=== PATIENT | female | born 1950 | race Caucasian/White ===

== ENCOUNTER 2017-11-07 11:02 | Outpatient (CLI) | payer MEDICARE ==
[2017-11-07 13:01] LABS: #Basophils 0.1 thou/uL (0.0-0.2); #Eosinphils 0.3 thou/uL (0.0-0.7); #Lymphocytes 3.6 thou/uL (1.20-3.40); #Monocytes 0.6 thou/uL (0.11-0.59); #Neutrophils 4.8 thou/uL (1.40-6.50); %Basophils 0.6 % (0.0-1.0); %Lymphocytes 38.7 % (21.0-51.0); %Monocytes 6.3 % (0.0-10.0); %Neutrophils 51.5 % (42.0-75.0); Hemoglobin 14.2 g/dL (12.0-16.0); Mean Corpuscular HGB CONC 33.6 g/dL (32.0-36.0); Mean Corpuscular Hemoglobin 30.9 pg (27.0-31.0); Mean Corpuscular Volume 91.8 fL (78.0-98.0); Mean Platelet Volume 7.4 fL (7.4-10.4); Platelet Count 256 thou/uL (130-400); RBC Distribution Width 12.1 % (11.5-14.5); White Blood Cell (WBC) Count 9.4 thou/uL (4.8-10.8)
[2017-11-07 13:22] LABS: Anion Gap 15 mmol/L (10-20); BUN (Urea Nitrogen) 14 mg/dL (9.8-20.1); Calc. Creatinine Clearance 0 mL/min (70-130); Calcium 9.8 mg/dL (7.8-10.44); Carbon Dioxide 27 mmol/L (23-31); Chloride 103 mmol/L (98-107); Estimated GFR-MDRD 79; Glucose 86 mg/dL (80-115); Potassium 4.1 mmol/L (3.5-5.1); Sodium 141 mmol/L (136-145)
--- NOTE | 2018-01-28 17:03 | EKG ---
Test Reason : Blood Pressure : / mmHG Vent. Rate : 072 BPM Atrial Rate : 072 BPM P-R Int : 166 ms QRS Dur : 094 ms QT Int : 418 ms P-R-T Axes : 071 -54 057 degrees QTc Int : 457 ms Normal sinus rhythm Incomplete right bundle branch block Left anterior fascicular block Nonspecific T wave abnormality Abnormal ECG No previous ECGs available Confirmed by STEWART LEONE M.D. ([id number]) on 01/28/2018 5:02:40 PM Referred By: EFRAIN Confirmed By:STEWART LEONE M.D.
== END 2017-11-07 11:03 | disposition home or self-care (01) ==
LOC: LABBT 11:02
PROVIDERS: ATTEND Surgery
DX: Z01.818 Encounter for other preprocedural examination (principal); K38.8 Other specified diseases of appendix
CPT/HCPCS: 80048; 85025; 93005; 93010

== ENCOUNTER 2017-11-16 09:26 | Day surgery (SDC) | payer MEDICARE ==
[2017-11-07 11:31] VITALS: BMI 24.3
[2017-11-16] MEDS ORDERED: cefOXitin 2 GM VIAL ONE (10:19)
[2017-11-16] MEDS ORDERED: Sodium Chloride 0.9% 100 ML ONE (10:20)
[2017-11-16] MEDS ORDERED: Bupivacaine/Epinephrine 0.25% 30 ML VIAL ONE (11:36)
[2017-11-16] MEDS ORDERED: Midazolam HCl 2 mg/2 ml Vial ONE (11:45)
[2017-11-16] MEDS ORDERED: Fentanyl 100 MCG/2 ML VIAL ONE ×4 (11:45→13:09)
--- NOTE | 2017-11-16 12:57 | OP ---
DATE OF PROCEDURE: 11/16/2017 PREOPERATIVE DIAGNOSIS: Appendiceal mass. POSTOPERATIVE DIAGNOSIS: Appendiceal mass. PROCEDURE: Laparoscopic appendectomy. SURGEON: Alex Davila M.D. ANESTHESIA: General. ESTIMATED BLOOD LOSS: Minimal. COMPLICATIONS: None. SPECIMEN: Appendix. TECHNIQUE: The patient was taken to the operating room and placed supine on the table. After genera l anesthetic was obtained, the abdomen was prepped and draped in a sterile fashion. A Thomas catheter had been placed. Incision was made above the umbilicus. Cautery was used to dissect down to and sc ore the fascia. Abdominal cavity was entered bluntly using a 12-mm Ethicon trocar, and high-flow pne umoperitoneum was obtained. Suprapubic 5-mm port and left lower quadrant 5-mm port were placed under direct visualization. The cecum was mobilized. A window was made posterior to the cecum at the lev el of the appendiceal orifice. Two loads of a laparoscopic DIMAS stapler were fired across the cecum t o remove the appendix at its base. The appendix was opened on the back table to reveal small nodules or growth at the base. The appendix was included with the specimen. The staple lines were intact. The mesentery was taken using a reload of the stapler. Appendix placed in an Endo Catch bag and had been brought out through the Man. All port sites infiltrated using local anesthetic. All ports are removed under camera visualization. Pneumoperitoneum was let down. PDS was used to close the f ascial defect below the umbilicus. All incisions were irrigated and closed using 4-0 Monocryl and De rmabond. The patient was taken to recovery in stable condition. All sponge counts, needle counts, l ap counts were correct.
[2017-11-16] MEDS ORDERED: PROPOFOL 200 MG/20 ML VIAL ONE (14:59)
[2017-11-16] MEDS ORDERED: HYDROcodone/Acetaminophen 5/325 mg Tablet ONE (14:59)
[2017-11-16] MEDS ORDERED: Lidocaine 1% PF 5 ML VIAL ONE (14:59)
[2017-11-16] MEDS ORDERED: Ondansetron HCl/PF 4 MG/2 ML Vial ONE (14:59)
[2017-11-16] MEDS ORDERED: Glycopyrrolate 0.2 MG/ML 5 ML SYRINGE ONE (14:59)
[2017-11-16] MEDS ORDERED: Dexamethasone 20 MG/5 ML VIAL ONE (14:59)
[2017-11-16] MEDS ORDERED: Morphine 4 MG/ML VIAL ONE (15:02)
== END 2017-11-16 15:58 | disposition home or self-care (01) ==
LOC: SDC 09:26
PROVIDERS: ATTEND Surgery
PROC: 0DTJ4ZZ Resection of Appendix, Percutaneous Endoscopic Approach (ICD-10-PCS; principal; 2017-11-16)
DX: K38.8 Other specified diseases of appendix (principal); F41.9 Anxiety disorder, unspecified; E78.00 Pure hypercholesterolemia, unspecified; I10 Essential (primary) hypertension; F17.210 Nicotine dependence, cigarettes, uncomplicated; E03.9 Hypothyroidism, unspecified; Z79.899 Other long term (current) drug therapy; Z88.8 Allergy status to other drugs, medicaments and biological substances
CPT/HCPCS: 88304; 96374; J0694; J1100; J2001; J2250; J2270; J2405; J2704; J3010; J7050

== ENCOUNTER 2019-01-18 04:56 | Emergency (ER) | payer MEDICARE | END 2019-01-18 05:33 | disposition home or self-care (01) | LOC: ERS 04:56 | DX: G47.30 Sleep apnea, unspecified (principal); F17.210 Nicotine dependence, cigarettes, uncomplicated | CPT/HCPCS: 36416; 99284 ==

== ENCOUNTER 2019-01-22 15:18 | Inpatient (IN) | payer MEDICARE ==
[2019-01-22] MEDS ORDERED: Ondansetron PF 4 MG/2 ML Vial ONE (15:40)
[2019-01-22] MEDS ORDERED: Metoclopramide HCl 10 MG/2 ML VIAL ONE (15:40)
--- NOTE | 2019-01-22 16:15 | CT ---
Exam: Head CT without contrast HISTORY: Headache COMPARISON: none FINDINGS: Hemorrhage: No intraparenchymal hemorrhage or extra-axial hematoma. Brain parenchyma: Cortical manning-white matter differentiation is preserved. No mass effect or midline shift. Basilar cisterns are patent. Ventricular system: Ventricles and sulci are patent and symmetric. Calvarium: Intact. Sinuses and mastoid air cells: Mucosal thickening of the paranasal sinuses. More discrete opacity wit h mixed attenuation the sphenoid sinus. This opacity is attenuation coefficient of 49 Hounsfield units. IMPRESSION: 1. No acute intracranial process. 2. Complex opacity in the sphenoid sinus measuring 2.1 x 1.5 cm. Complex inspissated mucus/secretions is a consideration. Mass lesion cannot be excluded. Direct visualization is recommended.
[2019-01-22 16:28] LABS: #Basophils 0.1 thou/uL (0.0-0.2); #Eosinphils 0.1 thou/uL (0.0-0.7); #Lymphocytes 3.2 thou/uL (1.20-3.40); #Monocytes 0.9 thou/uL (0.11-0.59); #Neutrophils 8.9 thou/uL (1.40-6.50); %Basophils 0.4 % (0.0-1.0); %Eosinophils 1.1 % (0.0-10.0); %Lymphocytes 24.5 % (21.0-51.0); %Monocytes 6.5 % (0.0-10.0); %Neutrophils 67.4 % (42.0-75.0); Hemoglobin 14.5 g/dL (12.0-16.0); Mean Corpuscular HGB CONC 34.1 g/dL (32.0-36.0); Mean Corpuscular Volume 90.9 fL (78.0-98.0); Mean Platelet Volume 7.3 fL (7.4-10.4); Platelet Count 286 thou/uL (130-400); RBC Distribution Width 12.1 % (11.5-14.5); Red Blood Cell (RBC) Count 4.68 mill/uL (4.20-5.40); White Blood Cell (WBC) Count 13.1 thou/uL (4.8-10.8)
[2019-01-22] MEDS ORDERED: Fentanyl 100 MCG/2 ML VIAL ONE ×2 (16:34→17:31)
[2019-01-22 16:51] LABS: ALT (SGPT) 20 U/L (8-55); AST (SGOT) 16 U/L (5-34); Alkaline Phosphatase 143 U/L (40-110); Anion Gap 18 mmol/L (10-20); BUN (Urea Nitrogen) 12 mg/dL (9.8-20.1); Bilirubin, Total 0.5 mg/dL (0.2-1.2); Calc. Creatinine Clearance 0 mL/min (70-130); Calcium 10.1 mg/dL (7.8-10.44); Carbon Dioxide 23 mmol/L (23-31); Chloride 95 mmol/L (98-107); Estimated GFR-MDRD 80; Globulin 3.3 g/dL (2.4-3.5); Glucose 98 mg/dL (80-115); Lipase 6 U/L (8-78); Potassium 3.1 mmol/L (3.5-5.1); Protein, Total 8.3 g/dL (6.0-8.3); Sodium 133 mmol/L (136-145)
--- NOTE | 2019-01-22 16:52 | RAD ---
Exam: Chest one view HISTORY:Fever. Meningitis. Comparison: None. FINDINGS: Cardiac silhouette: Normal Aorta: Slight elongation aorta. Pulmonary vessels: Normal Costophrenic angles: Clear LUNGS: Patchy interstitial opacities. Pneumothorax: None Osseous abnormalities: None IMPRESSION: Patchy interstitial opacities. Correlate for edema or infiltrate.
[2019-01-22 17:31] LABS: Color Of CSF Supernatant COLORLESS (Colorless); Tube # 2; Unspun CSF Color COLORLESS (Colorless)
[2019-01-22] MEDS ORDERED: Dexamethasone 10 MG/ML VIAL ONE (17:32)
[2019-01-22 17:42] LABS: CSF Source CSF; Clarity Cloudy/Turbid (Clear)
[2019-01-22 17:43] LABS: CSF Source CSF; Clarity Hazy (Clear); Tube # 1; Tube # 4
[2019-01-22 17:50] LABS: CSF, Glucose 58 mg/dl (40-70); CSF, Protein 172 mg/dL (15-40)
[2019-01-22 17:54] LABS: Cell Count Non Hematic 21 %; Eosinophils 1 %; Lymphocytes 61 %; Segmented Neutrophils 14 %
[2019-01-22 17:58] LABS: Cell Count Non Hematic 23 %; Lymphocytes 56 %; Segmented Neutrophils 18 %
--- NOTE | 2019-01-22 18:20 | PDOC.FPRHP ---
- History of Present Illness Chief Complaint: Headache History of Present Illness: 68-year-old female presented to the ED five days ago complaining of a cough congestion chest pain and shortness of breath. Patient was diagnosed with an upper respiratory infection and discharge dhome. Last night patient stated that she developed fevers and chills along with a frontal headache. She treated the fevers with Motrin and Tylenol which improved however her headache remained consistent through the day. She states that the headache is accompanied by neck pain that is exacerbated with movement. The headache has now been difficult to localize and is moving from frontal to temporal to occipital. She has a history of headaches but denies them ever feeling like this. Patient denies any sick contacts or being around anyone with similar symptoms. ED eval was significant for a lumbar tap w/ elevated WBC suggestive for meningitis. - Allergies/Adverse Reactions Allergies Allergy/AdvReac Type Severity Reaction Status Date / Time No Known Allergies Allergy Verified 01/22/19 20:11 - Home Medications Medication Instructions Recorded Confirmed Type Esomeprazole Magnesium [NexIUM] 40 mg PO QAM 11/07/17 01/22/19 History Ibuprofen [Motrin] 200 mg PO QAM 11/07/17 01/22/19 History Levothyroxine Sodium [Synthroid] 88 mcg PO DAILY 11/07/17 01/22/19 History Lisinopril/Hydrochlorothiazide 1 tablet PO DAILY 01/22/19 01/22/19 History [Lisinopril-Hctz 20-25 mg Tab] - History PMHx: Hx of epilepsy, hypothyroid, HTN, HLD PSHx: Thyroidectomy (cancer), appendectomy, hysterectomy FHx: Paternal colon cancer, Maternal CAD Social: Smokes 1ppd for >30, no alcohol, no drug use - Review of Systems General: reports: fever/chills, weight/appetite/sleep changes Eyes: denies: eye pain, vision changes ENT: reports: nasal congestion. denies: rhinorrhea Respiratory: reports: cough, congestion. denies: shortness of breath Cardiovascular: denies: chest pain, palpitation Gastrointestinal: reports: nausea, vomiting. denies: diarrhea, constipation Skin: denies: rashes, lesions Musculoskeletal: reports: pain (neck pain), stiffness (neck) Neurological: denies: numbness, syncope, seizure, weakness Psychological: denies: other - Vital signs BP: 117/64, Pulse: 95, Resp: 21, Temp: 99.3 (Oral), Pain: 6, O2 sat: 94 on Room Air - Physical Exam Constitutional: awake, alert and oriented, well developed HEENT: normocephalic and atraumatic, PERRLA, EOMI, grossly normal vision, grossly normal hearing, MMM -Neck: Diffuse neck stiffness and tenderness Heart: RRR, normal S1/S2, no murmurs/rubs/gallops Lungs: CTAB, no respiratory distress, good air movement Abdomen: soft, non-tender Musculoskeletal: ROM grossly normal -Neurological: +Kernig signs, normal strength and sensation Skin: no rash/lesions, good turgor, capillary refill <2 seconds Heme/Lymphatic: no unusual bruising or bleeding, no purpura, no petechia Psychiatric: normal mood and affect, good judgment and insight, intact recent and remote memory FMR H&P: Results - Labs Result Diagrams: 01/23/19 06:07 01/23/19 06:07 Lab results: WBC 13.1 thou/uL (4.8-10.8) H 01/22/19 16:18 Hgb 14.5 g/dL (12.0-16.0) 01/22/19 16:18 Hct 42.5 % (36.0-47.0) 01/22/19 16:18 MCV 90.9 fL (78.0-98.0) 01/22/19 16:18 Plt Count 286 thou/uL (130-400) 01/22/19 16:18 Neutrophils % 67.4 % (42.0-75.0) 01/22/19 16:18 Sodium 133 mmol/L (136-145) L 01/22/19 16:18 Potassium 3.1 mmol/L (3.5-5.1) L 01/22/19 16:18 Chloride 95 mmol/L (98-107) L 01/22/19 16:18 Carbon Dioxide 23 mmol/L (23-31) 01/22/19 16:18 BUN 12 mg/dL (9.8-20.1) 01/22/19 16:18 Creatinine 0.73 mg/dL (0.6-1.1) 01/22/19 16:18 Glucose 98 mg/dL (80-115) 01/22/19 16:18 Lactic Acid 2.7 mmol/L (0.5-2.2) H 01/22/19 16:18 Calcium 10.1 mg/dL (7.8-10.44) 01/22/19 16:18 Total Bilirubin 0.5 mg/dL (0.2-1.2) 01/22/19 16:18 AST 16 U/L (5-34) 01/22/19 16:18 ALT 20 U/L (8-55) 01/22/19 16:18 Alkaline Phosphatase 143 U/L (40-110) H 01/22/19 16:18 Serum Total Protein 8.3 g/dL (6.0-8.3) 01/22/19 16:18 Albumin 5.0 g/dL (3.4-4.8) H 01/22/19 16:18 Lipase 6 U/L (8-78) L 01/22/19 16:18 - Radiology Interpretation CT scan - head Status: report reviewed by me (no acute intracranial abnormalities) Chest x-ray Status: report reviewed by me (samir interstitial infiltrates) FMR H&P: A/P - Problem List (1) Meningitis Current Visit: Yes Status: Acute Code(s): G03.9 - MENINGITIS, UNSPECIFIED (2) Upper respiratory infection Current Visit: Yes Status: Acute Code(s): J06.9 - ACUTE UPPER RESPIRATORY INFECTION, UNSPECIFIED Qualifiers: URI type: unspecified viral URI Qualified Code(s): J06.9 - Acute upper respiratory infection, unspecified (3) HTN (hypertension) Current Visit: Yes Status: Chronic Code(s): I10 - ESSENTIAL (PRIMARY) HYPERTENSION Qualifiers: Hypertension type: essential hypertension Qualified Code(s): I10 - Essential (primary) hypertension (4) HLD (hyperlipidemia) Current Visit: Yes Status: Chronic Code(s): E78.5 - HYPERLIPIDEMIA, UNSPECIFIED (5) Hypothyroid Current Visit: Yes Status: Chronic Code(s): E03.9 - HYPOTHYROIDISM, UNSPECIFIED - Plan Meningitis - Likely viral based on CSF studies - Will initiate abx and antivirals while further studies pending - CSF bacterial culture and GS, enterovirus PCR, HSV PCR, Viral culture - ibuprofen and tylenol for pain, morphine for breakthrough - zofran for nausea - LR @ 100 Upper respiratory infection - likely viral, will be covered by abx if bacterial component - Viral resp panel ordered - Rx mucinex HTN HLD Hypothyroid - resume home rx regimen Diet: Regular IVF: LR @ 100 Code: Full Dispo: Admit to medical for abx and antiviral w/ additional supportive care while CSF studies pending FMR H&P: Upper Level - Plan Date/Time: 01/22/19 1819 I, Martin Robins MD, have evaluated this patient and agree with findings/plan as outlined by music industry intern resident. Pertinent changes/additions are listed here. Brandee Terry is a 68 year old F with a PMH of Hypothyroidism, hx of thyroid cancer s/p thyroidectomy, HTN, HLD who presented to the ED with c/o fever, chills, headache and neck pain. She was seen in the ED five days ago for cough , congestion, and dyspnea. She has been taking tylenol and motrin at home which has improved with subjective fevers, but the headache and neck pain remained. Neck pain is worsened by movement. She has a history of headaches in the past but states that this headache is different. Denies any sick contacts or recent travel. In the ED, there was concern for meningitis and LP was done. It was a traumatic tap and studies are indeterminant. She was given 2 L NS, vancomycin, ceftriaxone, fentanyl, reglan and zofran. EKG showed NSR, no st changes. WBC count is 13.1, no left shift. Remainder of cbc and cmp are within normal limits. Lactic acid was 2.7. TSH was normal. Physical exam was positive for neck pain with flexion of neck and positive brudzinski's sign. Lunges had rales at bases worse on right. CXR showed patchy interstitial opacity, edema vs infiltrate. Will admit patient to medication with droplet precautions. Likely viral meningitis, will continue empiric antibiotics and acyclovir and culture blood and csf. Continue decadron. Checking viral resp panel. Checking procal. Pain control. Please seen music industry intern note above for full H&P, which I have reviewed and agree with. Addendum - Attending - Attending Attestation Date/Time: 01/23/19 0800 I personally evaluated the patient and discussed the management with Dr. Wang on 01/22/2019 I agree with the History, Examination, Assessment and Plan documented above with any addition or exceptions noted below - 68-year-old female presented to the ED with fevers and chills along with a frontal headache. She treated the fevers with Motrin and Tylenol which improved however her headache remained consistent through the day. She states that the headache is accompanied by neck pain that is exacerbated with movement. The headache has now been difficult to localize and is moving from frontal to temporal to occipital. She has a history of headaches but denies them ever feeling like this. Patient denies any sick contacts or being around anyone with similar symptoms. she does report that five days ago she developed a cough, congestion chest pain and shortness of breath. Patient was seen and diagnosed with an upper respiratory infection and sent home. PMH/PSH/Meds/SH reviewed and agree with resident's documentation. Afebrile VSS Exam repeated by me and agree with resident's findings. Labs: WBC= 13.1 Diff=67N/25L, Mx=128, K=3.1, Cl=95, CO2=23, BUN/Cr=12/0.73, lactic acid=2.7 , CSF JXK=9657, CSF DRI=9142, CSF glu=58, CSF ixge=849. A/P: 1) Meningitis- most likely viral- continue current abx and acyclovir; Cultures pending. 2) Hypothyroidism- continue home meds
[2019-01-22 18:31] LABS: Bilirubin Negative (Negative); Blood, Urine Negative (Negative); Clarity Clear (Clear); Glucose, Urine (Dipstick) Normal (Negative); Leukocyte Negative Leu/uL (Negative); Nitrite Negative (Negative); Protein, Urine (Dipstick) Negative (Neg-Trace); Urobilinogen Normal mg/dL (Less than 2)
[2019-01-22] MEDS ORDERED: cefTRIAXone\\ROCEPHIN 2 GM VIAL ONE (18:45)
[2019-01-22] MEDS ORDERED: Acyclovir Sodium 900 MG in Sodium Chloride 0.9% 250 ML 250 ML IVPB SCH (19:00)
[2019-01-22] MEDS ORDERED: Ondansetron PF 4 MG/2 ML Vial IVP PRN (20:00)
[2019-01-22 20:17] VITALS: BMI 28.0
[2019-01-22 20:42] LABS: Lactic Acid 1.8 mmol/L (0.5-2.2)
[2019-01-22] MEDS: Acetaminophen 325 MG TAB PO PRN (20:46)
[2019-01-22] MEDS ORDERED: FLU VACC TS2019-20(65YR UP)/PF 180 MCG/0.5 ML SYRINGE IM ONE (21:00)
[2019-01-22] MEDS: Ondansetron ODT 4 MG TAB PO PRN (21:32)
[2019-01-22] MEDS ORDERED: Ibuprofen 600 MG TAB PO SCH ×2 (21:45→23:59)
[2019-01-22] MEDS ORDERED: Morphine 2 MG/ML SYRINGE SLOW IVP SCH (22:30)
[2019-01-22] MEDS ORDERED: Vancomycin HCl 1 GM in Premix Bag 1 BAG IVPB SCH (23:30)
[2019-01-23] MEDS: Ondansetron ODT 4 MG TAB PO PRN (02:31)
[2019-01-23] MEDS ORDERED: Promethazine HCl 25 MG/ML VIAL IM/IV SCH (03:45)
[2019-01-23] MEDS ORDERED: Promethazine HCl 25 MG in Sodium Chloride 0.9% 50 ML IVPB SCH (04:00)
[2019-01-23] MEDS ORDERED: Acyclovir Sodium 600 MG in Sodium Chloride 0.9% 100 ML IVPB SCH (04:00)
[2019-01-23] MEDS ORDERED: Vancomycin HCl 1 GM in Sodium Chloride 0.9% 250 ML 250 ML IVPB SCH (05:00)
[2019-01-23] MEDS: cefTRIAXone\\ROCEPHIN 2 GM in Sodium Chloride 0.9% 100 ML IVPB SCH ×2 (05:57→18:01)
[2019-01-23] MEDS: Lactated Ringer's 1,000 ML IV SCH ×2 (05:58→15:32)
[2019-01-23] MEDS: Levothyroxine Sodium 88 MCG TAB PO SCH (05:58)
[2019-01-23] MEDS: Ibuprofen 600 MG TAB PO SCH ×4 (05:58→23:14)
--- NOTE | 2019-01-23 06:13 | PDOC.FM ---
- Subjective Subjective: Voernight pt had 1 episode of n/v that was treated with phenergan. Sxs resolved since and eager for breakfast this morning. States she still has frontal GALLAGHER and neck pain with flexion. Given 1 dose morphine overnight for the pain. Denies any CP, SOB, vision changes, fever/chills. Has light sensitivity. - Objective MAR Reviewed: Yes Vital Signs & Weight: Vital Signs (12 hours) Temp Pulse Resp BP Pulse Ox 01/23/19 00:00 98.4 F 88 16 134/63 95 01/22/19 20:12 95 01/22/19 20:00 98.7 F 97 18 125/71 95 Weight Weight 76.402 kg I&O: 01/21/19 01/22/19 01/23/19 06:59 06:59 06:59 Intake Total 690 Balance 690 Result Diagrams: 01/23/19 06:07 01/23/19 06:07 Phys Exam - Physical Examination Constitutional: NAD (sitting on side of bed) HEENT: PERRLA, moist MMs light sensitivity Neck: supple nuchal rigdity Respiratory: no wheezing, no rales, no rhonchi, clear to auscultation bilateral Cardiovascular: RRR, no significant murmur, no rub Gastrointestinal: soft, non-tender, no distention, positive bowel sounds Musculoskeletal: no edema, pulses present Neurological: non-focal, normal sensation, moves all 4 limbs Psychiatric: normal affect, A&O x 3 Dx/Plan (1) Meningitis Code(s): G03.9 - MENINGITIS, UNSPECIFIED Status: Acute (2) HLD (hyperlipidemia) Code(s): E78.5 - HYPERLIPIDEMIA, UNSPECIFIED Status: Chronic (3) HTN (hypertension) Code(s): I10 - ESSENTIAL (PRIMARY) HYPERTENSION Status: Chronic Qualifiers: Hypertension type: essential hypertension Qualified Code(s): I10 - Essential (primary) hypertension (4) Hypothyroid Code(s): E03.9 - HYPOTHYROIDISM, UNSPECIFIED Status: Chronic (5) Upper respiratory infection Code(s): J06.9 - ACUTE UPPER RESPIRATORY INFECTION, UNSPECIFIED Status: Acute Qualifiers: URI type: unspecified viral URI Qualified Code(s): J06.9 - Acute upper respiratory infection, unspecified - Plan Plan: 68yo F with h/o HTN and Hypothyroidism presents with 5d history of fever/chills , neck pain, and GALLAGHER with spinal tap c/w meningitis # Meningitis, likely viral - Likely viral based on CSF studies - BG 58, TP 172, 14% PMN, 61% lymphocytes - Continue Vanc, Rocephin. Acyclovir is on back order per pharmacy, will switch to Valrex 1g TID - CSF bacterial culture and GS, enterovirus PCR, HSV PCR, Viral culture all pending - ibuprofen and tylenol for pain, morphine for breakthrough - zofran for nausea - LR @ 100 # Upper respiratory infection - likely viral, will be covered by abx if bacterial component - CXR patchy infiltrates - Viral resp panel ordered - Rx mucinex # Hypokalemia - K 3.3, will replace, recheck, and check Mg # HTN - Will continue lisinopril/hctz and monitor # Hypothyroid - resume home levothyroxine Diet: Regular IVF: LR @ 100 Code: Full Dispo: Admitted to medical for abx and antiviral w/ additional supportive care while CSF studies pending. Addendum - Attending - Attending Attestation Date/Time: 01/23/19 3440 I personally evaluated the patient and discussed the management with Dr. Jimenez I agree with the History, Examination, Assessment and Plan documented above with any addition or exceptions noted below.
[2019-01-23 06:25] LABS: #Lymphocytes 1.9 thou/uL (1.20-3.40); #Monocytes 0.4 thou/uL (0.11-0.59); #Neutrophils 8.5 thou/uL (1.40-6.50); %Basophils 0.3 % (0.0-1.0); %Eosinophils 0.1 % (0.0-10.0); %Lymphocytes 17.2 % (21.0-51.0); %Monocytes 4.1 % (0.0-10.0); %Neutrophils 78.4 % (42.0-75.0); Hemoglobin 11.8 g/dL (12.0-16.0); Mean Corpuscular HGB CONC 34.2 g/dL (32.0-36.0); Mean Corpuscular Hemoglobin 30.9 pg (27.0-31.0); Mean Corpuscular Volume 90.3 fL (78.0-98.0); Mean Platelet Volume 7.2 fL (7.4-10.4); Platelet Count 228 thou/uL (130-400); RBC Distribution Width 11.8 % (11.5-14.5); Red Blood Cell (RBC) Count 3.84 mill/uL (4.20-5.40); White Blood Cell (WBC) Count 10.8 thou/uL (4.8-10.8)
[2019-01-23 06:49] LABS: Anion Gap 11 mmol/L (10-20); BUN (Urea Nitrogen) 11 mg/dL (9.8-20.1); Calc. Creatinine Clearance 100 mL/min (70-130); Calcium 8.7 mg/dL (7.8-10.44); Carbon Dioxide 24 mmol/L (23-31); Chloride 100 mmol/L (98-107); Estimated GFR-MDRD 88; Glucose 144 mg/dL (80-115); Potassium 3.3 mmol/L (3.5-5.1); Sodium 132 mmol/L (136-145)
[2019-01-23] MEDS ORDERED: Potassium Chloride 20 MEQ TAB PO SCH (08:45)
[2019-01-23] MEDS: Acetaminophen 325 MG TAB PO PRN (09:13)
[2019-01-23] MEDS: Lisinopril/Hydrochlorothiazide 20/25 mg Tablet PO SCH (09:15)
[2019-01-23] MEDS: guaiFENesin ER 600 MG TAB PO SCH ×2 (09:16→20:53)
[2019-01-23] MEDS: Vancomycin HCl 1.5 GM in Sodium Chloride 0.9% 250 ML 300 ML IVPB SCH ×2 (09:23→20:56)
[2019-01-23] MEDS ORDERED: Magnesium 2 GM/50 ML 2 GM in Premix Bag 1 BAG IVPB SCH (13:30)
[2019-01-23] MEDS ORDERED: valACYclovir 500 MG TAB PO SCH (15:00)
[2019-01-23] MEDS: valACYclovir 500 MG TAB PO SCH ×2 (15:29→21:55)
[2019-01-24] MEDS: Levothyroxine Sodium 88 MCG TAB PO SCH (05:07)
[2019-01-24] MEDS: Ibuprofen 600 MG TAB PO SCH ×2 (05:07→12:01)
[2019-01-24] MEDS: cefTRIAXone\\ROCEPHIN 2 GM in Sodium Chloride 0.9% 100 ML IVPB SCH (05:07)
[2019-01-24] MEDS: Lactated Ringer's 1,000 ML IV SCH (05:08)
--- NOTE | 2019-01-24 05:40 | PDOC.FM ---
- Subjective Subjective: Pt doing very well this morning. 1 episode of GALLAGHER overnight that was well- controlled with tylenol. Light sensitivity has resolved. Mild neck pain with flexion. Ambulating without difficulty, tolerating PO well. Denies any fever/ chills, n/v, d/c, CP, or SOB. No focal neurologic deficit. - Objective MAR Reviewed: Yes Vital Signs & Weight: Vital Signs (12 hours) Temp Pulse Resp BP BP Pulse Ox 01/23/19 20:00 97.9 F 70 18 112/66 93 L 01/23/19 19:55 99.1 F 82 20 164/74 H 94 L Weight Admit Weight 76.402 kg Weight 76.402 kg I&O: 01/22/19 01/23/19 01/24/19 06:59 06:59 06:59 Intake Total 690 Balance 690 Result Diagrams: 01/24/19 05:38 01/24/19 05:38 Phys Exam - Physical Examination Constitutional: NAD (ambulating in room without difficulty) HEENT: moist MMs Neck: supple Respiratory: no wheezing, no rales, no rhonchi, clear to auscultation bilateral Cardiovascular: RRR, no significant murmur, no rub Gastrointestinal: soft, non-tender, no distention, positive bowel sounds Musculoskeletal: no edema, pulses present Neurological: non-focal, normal sensation no nuchal ridgitity Psychiatric: normal affect, A&O x 3 Dx/Plan (1) Meningitis Code(s): G03.9 - MENINGITIS, UNSPECIFIED Status: Acute (2) HLD (hyperlipidemia) Code(s): E78.5 - HYPERLIPIDEMIA, UNSPECIFIED Status: Chronic (3) HTN (hypertension) Code(s): I10 - ESSENTIAL (PRIMARY) HYPERTENSION Status: Chronic Qualifiers: Hypertension type: essential hypertension Qualified Code(s): I10 - Essential (primary) hypertension (4) Hypothyroid Code(s): E03.9 - HYPOTHYROIDISM, UNSPECIFIED Status: Chronic (5) Upper respiratory infection Code(s): J06.9 - ACUTE UPPER RESPIRATORY INFECTION, UNSPECIFIED Status: Acute Qualifiers: URI type: unspecified viral URI Qualified Code(s): J06.9 - Acute upper respiratory infection, unspecified - Plan Plan: 68yo F with h/o HTN and Hypothyroidism presents with 5d history of fever/chills , neck pain, and GALLAGHER with spinal tap c/w meningitis # Meningitis, likely viral - Likely viral based on CSF studies - CSF Cx NG at 12h and no organisms on gram stain. Enterovirus PCR, HSV PCR, Viral culture pending - CSF BG 58, TP 172, 14% PMN, 61% lymphocytes - BCx NGTD. Procal 0.03 - Continue Vanc, Rocephin. Acyclovir is on back order per pharmacy, will switch to Valtrex - will d/c with return of neg cultures @ 24hours - Prn ibuprofen and tylenol for pain, morphine for breakthrough. Zofran for nausea. - sxs much improved this morning - will d/c IVF # Upper respiratory infection, likely viral - CXR patchy infiltrates - Viral resp panel neg - Rx mucinex - sxs much improved # Hypokalemia, resolved - K 3.3 -> 3.9 with replacement #Hypomag, resolved - 1.5 -> 1.9 with replacement # HTN - Continue lisinopril/hctz and monitor # Hypothyroid 2/2 h/o thyroid cancer s/p thyroidectomy - Cont home levothyroxine - TSH 0.5651 Diet: Regular IVF: SL Code: Full Dispo: Admitted to medical for abx and antiviral w/ additional supportive care while CSF studies pending. Will d/c once cx return and can d/c abx appropriately. Addendum - Attending - Attending Attestation Date/Time: 01/24/192125 I personally evaluated the patient and discussed the management with Dr. Jimenez I agree with the History, Examination, Assessment and Plan documented above with any addition or exceptions noted below.
[2019-01-24 06:09] LABS: #Basophils 0.1 thou/uL (0.0-0.2); #Monocytes 0.9 thou/uL (0.11-0.59); #Neutrophils 8.5 thou/uL (1.40-6.50); %Basophils 0.5 % (0.0-1.0); %Eosinophils 0.3 % (0.0-10.0); %Lymphocytes 24.1 % (21.0-51.0); %Monocytes 7.4 % (0.0-10.0); %Neutrophils 67.7 % (42.0-75.0); Hemoglobin 11.5 g/dL (12.0-16.0); Mean Corpuscular HGB CONC 33.5 g/dL (32.0-36.0); Mean Corpuscular Hemoglobin 31.3 pg (27.0-31.0); Mean Corpuscular Volume 93.4 fL (78.0-98.0); Mean Platelet Volume 7.7 fL (7.4-10.4); Platelet Count 247 thou/uL (130-400); RBC Distribution Width 12.2 % (11.5-14.5); Red Blood Cell (RBC) Count 3.67 mill/uL (4.20-5.40); White Blood Cell (WBC) Count 12.6 thou/uL (4.8-10.8)
[2019-01-24 06:18] LABS: Anion Gap 13 mmol/L (10-20); BUN (Urea Nitrogen) 10 mg/dL (9.8-20.1); Calc. Creatinine Clearance 104 mL/min (70-130); Calcium 8.5 mg/dL (7.8-10.44); Carbon Dioxide 22 mmol/L (23-31); Chloride 106 mmol/L (98-107); Estimated GFR-MDRD Greater than 90; Glucose 108 mg/dL (80-115); Magnesium 1.9 mg/dL (1.6-2.6); Potassium 3.9 mmol/L (3.5-5.1); Sodium 137 mmol/L (136-145)
[2019-01-24] MEDS: Acetaminophen 325 MG TAB PO PRN (06:33)
[2019-01-24 07:18] VITALS: BP 126/80; TEMP 97.8
[2019-01-24 08:22] LABS: Vancomycin, Trough 14.7 ug/mL
[2019-01-24] MEDS ORDERED: valACYclovir 500 MG TAB PO SCH (09:00)
[2019-01-24] MEDS: Vancomycin HCl 1.5 GM in Sodium Chloride 0.9% 250 ML 300 ML IVPB SCH (09:25)
[2019-01-24] MEDS: Lisinopril/Hydrochlorothiazide 20/25 mg Tablet PO SCH (09:25)
[2019-01-24] MEDS: guaiFENesin ER 600 MG TAB PO SCH (09:25)
[2019-01-24] MEDS ORDERED: Acetaminophen/Codeine 30-300mg Tablet PO SCH (10:15)
[2019-01-24] MEDS ORDERED: Acetaminophen/Codeine 30-300mg Tablet PO PRN (10:15)
[2019-01-24] MEDS ORDERED: Ketorolac Tromethamine 30 MG/ML VIAL IVP SCH (11:45)
[2019-01-24] MEDS ORDERED: Senokot S 8.6-50 MG TAB PO SCH (21:00)
[2019-01-24] MEDS ORDERED: Docusate 100 MG CAP PO SCH (21:00)
[2019-01-25] MEDS ORDERED: Levothyroxine Sodium 88 MCG TAB PO SCH (05:00)
[2019-01-25] MEDS ORDERED: Lisinopril/Hydrochlorothiazide 20/25 mg Tablet PO SCH ×2 (05:00)
--- NOTE | 2019-01-25 15:51 | DIS ---
DATE OF ADMISSION: 01/22/2019 DATE OF DISCHARGE: 01/24/2019 RESIDENT: Kin Jimenez MD ADMITTING ATTENDING: Kim Velázquez MD. DISCHARGE ATTENDING: John Hernandez MD. CONSULTS: None. PROCEDURES: 1. Lumbar puncture on 01/22/2019. 2. Brain CT on 01/22/2019, demonstrating no acute intracranial process. Complex opacity in the sphenoid sinus measuring 2.1 x 1.5 cm complex inspissated mucus/secretions is a consideration. Mass lesion cannot be excluded. Direct visualization is recommended. 3. Chest x-ray on 01/22/2019, demonstrating patchy interstitial opacities, correlate for edema or infiltrate. PRIMARY DIAGNOSES: 1. Viral meningitis. 2. Viral upper respiratory infection. SECONDARY DIAGNOSES: 1. Hypokalemia, resolved. 2. Hypomagnesemia, resolved. 3. Hypertension. 4. Hypothyroidism secondary to history of thyroid cancer status post thyroidectomy. DISCHARGE MEDICATIONS: 1. Motrin 600 mg p.o. q.6 hours p.r.n. 2. Zofran 4 mg ODT q.6 hours p.r.n. 3. Tylenol No. 3 one tablet p.o. q.4 hours p.r.n. 4. Lisinopril-hydrochlorothiazide 20-25 mg one tablet p.o. daily. 5. Levothyroxine 88 mcg p.o. daily. 6. Nexium 40 mg p.o. q.a.m. DISCONTINUED MEDICATIONS: Motrin 200 mg p.o. q.a.m. until finished with other ibuprofen prescription. SIGNIFICANT LABORATORY DATA: White blood cell count 12.6, hemoglobin 11.5, platelets 247. Lactic acid 2.7 trended down to 1.8, magnesium 1.5 trended up to 1.9, potassium 3.3 trended up to 3.9, procalcitonin 0.03, TSH 0.5651. UA, clean. CSF, total protein 172, glucose 58, total nucleated cells 2121, rbc's 1985, lymphocytes 61%, neutrophils 14%. Respiratory panel negative. Blood cultures, no growth at 48 hours. Spinal fluid culture, no growth at 3 days. HISTORY OF PRESENT ILLNESS AND HOSPITAL COURSE: The patient is a 68-year-old female, who presented to the ED 5 days prior to admission for cough, congestion, chest pain, shortness of breath, was diagnosed with an upper respiratory infection and discharged home with supportive care. The night prior to admission, the patient stated that she began to develop fevers, chills along with a frontal headache, treating herself with Motrin and Tylenol which improved the headache, however, it continued to remain constant. She states that the headache was accompanied by neck pain that gets worse with movement and light. This headache is now difficult to localize, it is moving frontal to the part of the occipital. Has history of headaches, but nothing like this. Denies any sick contacts or been around anyone with similar symptoms. In the ED, she was evaluated with a lumbar tap, suggested viral meningitis. The patient was then admitted for further evaluation and management. Once on the floor, the patient was continued on vancomycin, Rocephin, and acyclovir. Acyclovir was noted to be on national backorder thus the patient was transitioned to valacyclovir oral, pending cultures and clinical status. The patient's pain was controlled with Tylenol No. 3 and Toradol. Zofran for nausea control. The patient was initially started on IV fluids, however, was tolerating p.o. well and thus this was discontinued. Respiratory viral panel returned negative. The patient was slightly hypokalemic and hypomagnesemic. This was replaced and responded appropriately. Chronic medical conditions were controlled with home medications. The patient was continued on antibiotics until cultures return negative at 48 hours. At this time, the patient's clinical status has significantly improved and it was determined that the patient most likely had a viral meningitis and thus all antibiotics and antivirals were discontinued and she will be discharged with supportive care. Discharge plan discussed with patient as well as niece at bedside including, but not limited to the typical course of viral meningitis. She was discharged with a prescription for Zofran and Tylenol No. 3 for pain and nausea respectively. Return precautions were given including, but not limited to, increased fever, decreased p.o. intake , focal neurologic deficits or worsening pain that would warrant return to the emergency department for further evaluation and management. As discussed, the patient should follow up with her primary care physician within 7 days of discharge. At the time of discharge, the patient stated that her nausea and headaches were both well controlled. She was ambulating in the room without difficulty, tolerating p.o. well. The patient was then discharged home to self care. Pt and voiced agreement and understanding of discharge plan. All questions were answered appropriately. DISPOSITION: Stable. DISCHARGE INSTRUCTIONS: 1. Location: Home. 2. Diet: Regular as tolerated. 3. Activity: As tolerated. 4. Followup: The patient to followup with primary care physician within 1 week of discharge. The patient should most likely also see ENT for evaluation of questionable mass on CT as stated above. Job ID: [id number]
== END 2019-01-24 16:06 | disposition home or self-care (01) | DRG 76 ==
LOC: ERS 15:18 → T4-A 17:50
PROVIDERS: ADMIT Family Medicine; ATTEND Family Medicine
PROC: 009U3ZX Drainage of Spinal Canal, Percutaneous Approach, Diagnostic (ICD-10-PCS; principal; 2019-01-22)
DX: A87.9 Viral meningitis, unspecified (principal); F17.210 Nicotine dependence, cigarettes, uncomplicated; E89.0 Postprocedural hypothyroidism; E78.00 Pure hypercholesterolemia, unspecified; J06.9 Acute upper respiratory infection, unspecified; I10 Essential (primary) hypertension; G40.909 Epilepsy, unspecified, not intractable, without status epilepticus; E83.42 Hypomagnesemia; E87.6 Hypokalemia; Z90.89 Acquired absence of other organs; Z90.710 Acquired absence of both cervix and uterus; Z90.49 Acquired absence of other specified parts of digestive tract; Z85.850 Personal history of malignant neoplasm of thyroid; Z79.899 Other long term (current) drug therapy
CPT/HCPCS: 36415; 62270; 70450; 71045; 80048; 80053; 80202; 81003; 82945; 83605; 83690; 83735; 84145; 84157; 84443; 85025; 85060; 87040; 87070; 87205; 87252; 87498; 87529; 87633; 89051; 96365; 96366; 96368; 96375; J0133; J0696; J1100; J2270; J2405; J2550; J2765; J3010; J3370; J3475; J3490; J7050; Q0162

== ENCOUNTER 2019-01-27 20:33 | Observation (INO) | payer MEDICARE ==
[2019-01-27] MEDS ORDERED: Ondansetron PF 4 MG/2 ML Vial ONE (20:54)
[2019-01-27 21:24] LABS: #Basophils 0.1 thou/uL (0.0-0.2); #Eosinphils 0.1 thou/uL (0.0-0.7); #Monocytes 0.8 thou/uL (0.11-0.59); #Neutrophils 10.5 thou/uL (1.40-6.50); %Basophils 0.6 % (0.0-1.0); %Eosinophils 0.7 % (0.0-10.0); %Lymphocytes 14.6 % (21.0-51.0); %Monocytes 5.7 % (0.0-10.0); %Neutrophils 78.4 % (42.0-75.0); Hemoglobin 12.9 g/dL (12.0-16.0); Mean Corpuscular Hemoglobin 31.2 pg (27.0-31.0); Mean Corpuscular Volume 89.3 fL (78.0-98.0); Mean Platelet Volume 6.5 fL (7.4-10.4); Platelet Count 375 thou/uL (130-400); RBC Distribution Width 12.1 % (11.5-14.5); Red Blood Cell (RBC) Count 4.12 mill/uL (4.20-5.40); White Blood Cell (WBC) Count 13.4 thou/uL (4.8-10.8)
[2019-01-27 21:36] LABS: ALT (SGPT) 14 U/L (8-55); AST (SGOT) 10 U/L (5-34); Albumin 4.5 g/dL (3.4-4.8); Alkaline Phosphatase 105 U/L (40-110); Anion Gap 19 mmol/L (10-20); BUN (Urea Nitrogen) 16 mg/dL (9.8-20.1); Bilirubin, Total 0.5 mg/dL (0.2-1.2); Calc. Creatinine Clearance 0 mL/min (70-130); Calcium 9.8 mg/dL (7.8-10.44); Carbon Dioxide 23 mmol/L (23-31); Chloride 93 mmol/L (98-107); Estimated GFR-MDRD 79; Globulin 2.8 g/dL (2.4-3.5); Glucose 145 mg/dL (80-115); Potassium 3.5 mmol/L (3.5-5.1); Protein, Total 7.3 g/dL (6.0-8.3); Sodium 131 mmol/L (136-145)
[2019-01-27] MEDS ORDERED: Promethazine HCl 25 MG/ML VIAL ONE (21:45)
[2019-01-27] MEDS ORDERED: Acetaminophen 500 MG TAB ONE (22:13)
[2019-01-27] MEDS ORDERED: diphenhydrAMINE 50 MG/ML VIAL ONE (22:13)
--- NOTE | 2019-01-27 23:38 | CT ---
CT Brain WO Con: 01/27/2019 12:00 AM CLINICAL HISTORY: History of headache and vomiting. IMAGING TECHNIQUE: Multiple CT images were obtained of the brain without IV contrast. COMPARISON: CT the brain dated January 22, 2019 FINDINGS: Brain: No acute infarct or hemorrhage is evident. No midline shift. Ventricles: Normal. No hydrocephalus.. Skull: Intact.. Visualized Paranasal sinuses: There is a prominent mucous retention cyst within the sphenoid sinus.. Mastoid air cells:Clear. Extracranial soft tissues:Normal. IMPRESSION: No acute intracranial abnormality.
--- NOTE | 2019-01-28 00:19 | PDOC.FPRHP ---
- History of Present Illness Chief Complaint: headache, N/V History of Present Illness: 68-year-old female, recently discharged from the hospital for viral meningitis last Sunday, started having headache and worsening nausea and vomiting today at noon. Patient denies any fever. Patient states shes had off and on headaches with vomiting since discharge on Sunday. Patient complains of back/neck pain and stiffness since admission last Sunday. It is slightly better than when she was discharged. Patients headache is left sided, pressure and throbbing in character, and associated with bilateral eye pain. Patient denies any tearing of her eyes when having the headache. Patient reports sensitivity to light and noise. Patient states that the headache is worse and when laying flat. Patient also states that she has been very shaky and having chills. Patient has never really had headaches since before her admission for viral meningitis. Patient complains of constipation for the last 4 to 5 days not having a bowel movement; shes been taking stool softeners for this problem. Patient states that shes been unable to tolerate her PO medications as discharge from the hospital on. Emergency department course patient was given 1 L NS, Phenergan IV, Tylenol, Benadryl, and CT head was negative. WBC 13.4, sodium 131, lactic acid 1.9. CSF culture showed no growth on culture, from previous admission. Respiratory viral pathogen panel was negative on previous admission. HSV negative. - Allergies/Adverse Reactions Allergies Allergy/AdvReac Type Severity Reaction Status Date / Time davis Allergy Mild Stomach Verified 01/23/19 13:26 Ache - Home Medications Medication Instructions Recorded Confirmed Type Esomeprazole Magnesium [NexIUM] 40 mg PO QAM 11/07/17 01/22/19 History Levothyroxine Sodium [Synthroid] 88 mcg PO DAILY 11/07/17 01/22/19 History Lisinopril/Hydrochlorothiazide 1 tablet PO DAILY 01/22/19 01/22/19 History [Lisinopril-Hctz 20-25 mg Tab] Acetaminophen W/ Codeine 1 tab PO Q4H PRN #21 tab 01/24/19 Rx [Acetaminophen/Codeine #3] Ibuprofen [Motrin] 600 mg PO Q6HR #30 tab 01/24/19 Rx Ondansetron [Zofran ODT] 4 mg PO Q6H PRN #30 tab 01/24/19 Rx - History PMHx: Hx of epilepsy, hypothyroid, HTN, HLD PSHx: Thyroidectomy (cancer), appendectomy, hysterectomy FHx: Paternal colon cancer, Maternal CAD Social: Smokes 1ppd for >30, no alcohol, no drug use - Review of Systems General: reports: fever/chills, fatigue Eyes: reports: eye pain. denies: vision changes ENT: denies: nasal congestion, rhinorrhea Respiratory: denies: cough Cardiovascular: denies: chest pain, edema Gastrointestinal: reports: nausea, vomiting, constipation. denies: diarrhea, abdominal pain Genitourinary: denies: dysuria, polyuria Skin: denies: rashes, lesions, jaundice, itching Musculoskeletal: reports: pain (neck and back), stiffness (neck) Neurological: reports: weakness, other (dizziness). denies: syncope - Vital signs BP: 126/68 HR: 67 RR: 15 Tmax: 97.8 Pox: 95% on RA Wt: 74.1 kg - Physical Exam Constitutional: NAD, awake, alert and oriented, well developed HEENT: normocephalic and atraumatic, PERRLA, EOMI, conjunctiva clear, no scleral icterus, grossly normal vision, grossly normal hearing, oropharynx clear -HEENT: dry mucus membranes Neck: trachea midline -Neck: negative brudinksi sign. Decreased flexion of neck. Chest: no-tender to palpation, no lesions Heart: RRR, normal S1/S2, no murmurs/rubs/gallops, pulses present, no edema Lungs: CTAB, no respiratory distress, good air movement, no rales/rhonchi, no wheezing, no retractions Abdomen: soft, non-tender, bowel sounds present, no masses/distention, no hernias Musculoskeletal: normal structure, normal tone, ROM grossly normal Neurological: no focal deficit, CN II-XII intact, normal sensation Skin: no rash/lesions, good turgor, capillary refill <2 seconds, no jaundice Heme/Lymphatic: no unusual bruising or bleeding, no purpura, no petechia Psychiatric: normal mood and affect, intact recent and remote memory FMR H&P: Results - Labs Result Diagrams: 01/28/19 03:12 01/28/19 03:12 Lab results: WBC 13.4 thou/uL (4.8-10.8) H 10/28/19 21:09 Hgb 12.9 g/dL (12.0-16.0) 01/27/19 21:09 Hct 36.8 % (36.0-47.0) 01/27/19 21:09 MCV 89.3 fL (78.0-98.0) 01/27/19 21:09 Plt Count 375 thou/uL (130-400) 01/27/19 21:09 Neutrophils % 78.4 % (42.0-75.0) H 01/27/19 21:09 Sodium 131 mmol/L (136-145) L 01/27/19 21:09 Potassium 3.5 mmol/L (3.5-5.1) 01/27/19 21:09 Chloride 93 mmol/L (98-107) L 01/27/19 21:09 Carbon Dioxide 23 mmol/L (23-31) 01/27/19 21:09 BUN 16 mg/dL (9.8-20.1) 01/27/19 21:09 Creatinine 0.74 mg/dL (0.6-1.1) 01/27/19 21:09 Glucose 145 mg/dL (80-115) H 01/27/19 21:09 Lactic Acid 1.9 mmol/L (0.5-2.2) 01/27/19 21:09 Calcium 9.8 mg/dL (7.8-10.44) 01/27/19 21:09 Total Bilirubin 0.5 mg/dL (0.2-1.2) 01/27/19 21:09 AST 10 U/L (5-34) 01/27/19 21:09 ALT 14 U/L (8-55) 01/27/19 21:09 Alkaline Phosphatase 105 U/L (40-110) 01/27/19 21:09 Serum Total Protein 7.3 g/dL (6.0-8.3) 01/27/19 21:09 Albumin 4.5 g/dL (3.4-4.8) 01/27/19 21:09 Lipase Less than 4 U/L (8-78) L 01/27/19 21:09 Laboratory Tests 01/22/19 01/22/19 01/22/19 17:08 17:08 17:08 Fluid Color [place] H Fluid Clarity Cloudy/Turbid H Fluid Seg Neutrophil % 18 Fluid Lymphocytes % 56 Fluid Basophils % 3 CSF RBC (Auto) 7732 CSF Total Nucleated Auto 2381 CSF Glucose 58 CSF Total Protein 172 H HSV I DNA PCR Negative HSV II DNA PCR Negative - Radiology Interpretation CT scan - head Status: report reviewed by me (Neg for acute process.) FMR H&P: A/P - Problem List (1) Meningitis Current Visit: No Status: Acute Code(s): G03.9 - MENINGITIS, UNSPECIFIED (2) HLD (hyperlipidemia) Current Visit: No Status: Chronic Code(s): E78.5 - HYPERLIPIDEMIA, UNSPECIFIED (3) HTN (hypertension) Current Visit: No Status: Chronic Code(s): I10 - ESSENTIAL (PRIMARY) HYPERTENSION Qualifiers: Hypertension type: essential hypertension Qualified Code(s): I10 - Essential (primary) hypertension (4) Hypothyroid Current Visit: No Status: Chronic Code(s): E03.9 - HYPOTHYROIDISM, UNSPECIFIED (5) Intractable vomiting with nausea Current Visit: Yes Status: Acute Code(s): R11.2 - NAUSEA WITH VOMITING, UNSPECIFIED (6) Intractable headache Current Visit: Yes Status: Acute Code(s): R51 - HEADACHE - Plan 68 y/o f admitted for viral meningitis with headache and n/v. 1. Viral Meningitis - Recent admission CSF studies consistent with viral meningitis. Neg HSV. no growth on culture. No LP indicated at this time. - Admit for symptomatic management: Toradol, reglan, benadryl, tylenol, and zofran. - IVF LR @ 125 mL/hr 2. Intractable Nausea and Vomiting - Continue symptomatic management with anti-emetics 3. Intractable Headache - Toradol, reglan, tylenol - most likely 2/2 viral meningitis vs migraine 4. Hx of HTN - Continue home meds lisinopril/HCTZ 5. Hx of HLD 6. Hypothyroidism - Continue levothyroxine 88 mcg daily Code status: full code Diet: clears, advance as tolerated DVT ppx: SCD's Dispo: Stable, Admit to medical obs for further symptomatic management of viral meningitis. FMR H&P: Upper Level - Pertinent history 68 y/o F who was recently admitted for viral meningitis presents to the ED with persistent N/V, and H/A. She reports that on and off she has been having headache, N/V, but it got much worse tonight. She is 6 days into her diagnosis of viral meningitis. She was found to have negative HSV PCR. Suspicion was for enterovirus meningitis. She has been taking zofran for the nausea, and alternating tylenol #3 and ibuprofen for the headache. Today she has been unable to keep anything down, including her meds which has worsened her symptoms. Denies neck pain, back pain , seizures, weakness, numbness, fevers. - Pertinent findings Vitals: BP 137/70, HR 69, RR 21, Temp 97.8, O2 sat 100% on RA PE: Gen - alert, oriented, NAD, appears uncomfortable Eyes - EOMI, PERRL CV - RRR, no murmurs Lungs - CTAB, no wheezes Neuro - CN II-XII grossly intact, sensation to light tough intact, strength grossly intact Ext - no cyanosis or edema Labs: WBC 13.4, Na 131, LA 1.9, Lipase < 4 CT brain no acute intracranial process - Plan Date/Time: 01/28/19 0019 I, Joanna Ramires MD, PGY-3, have evaluated this patient and agree with findings/ plan as outlined by financial intern resident. Pertinent changes/additions are listed here. 1. Intractable H/A Likely 2/2 viral meningitis vs migraine. Pt diagnosed with viral meningitis 6 days ago. She reports the tylenol, fluids, phenergan, and benadryl given in the ED helped, but now they have worn off and her symptoms are back. Do not think repeat spinal tap is warranted at this time, but have low threshold to repeat it for any neuro symptoms, new fevers, or if headache does not improve with therapy. -Reglan, benadryl, toradol IV prn -LR @ 125 2. Intractable N/V Likely 2/2 meningitis vs migraine. Phenergan and zofran helped initially, but symptoms have returned -Reglan and zofran prn -ADAT, start with clears -LR @ 125 3. Viral Meningitis Pt had viral meningitis with HSV PCR negative. Likely enterovirus. -Supportive treatment 4. Hypothyroidism -Continue home synthroid 5. HTN -Continue home Lisinopril/HCTZ 6. GERD -Continue home nexium Dispo: Obs on medical LOS: likely less than 48 hours Code status: Full Addendum - Attending - Attending Attestation Date/Time: 01/28/19 3818 I personally evaluated the patient and discussed the management with Dr. Ferreira. I agree with the History, Examination, Assessment and Plan documented above with any addition or exceptions noted below. The patient was admitted overnight for intractable headache with a recent hospitalization for viral meningitis. She has received benadryl, reglan, toradol and fluids. She notes this has improved her headache. Her neuro exam is normal. She does have some tenderness to posterior neck muscles but full range of motion in the neck. Will continue headache meds. Consider muscle relaxer. Monitor neuro status.
[2019-01-28] MEDS ORDERED: Acetaminophen 325 MG TAB PO PRN (02:15)
[2019-01-28] MEDS ORDERED: Ketorolac Tromethamine 30 MG/ML VIAL ONE ×2 (02:19→10:21)
[2019-01-28] MEDS ORDERED: diphenhydrAMINE 50 MG/ML VIAL ONE ×3 (02:19→10:21)
[2019-01-28] MEDS: Lactated Ringer's 1,000 ML IV SCH ×3 (02:29→16:57)
[2019-01-28] MEDS ORDERED: Nicotine 14 MG PATCH ONE ×2 (02:31→02:48)
[2019-01-28] MEDS: Nicotine 14 MG PATCH TD SCH (03:19)
[2019-01-28] MEDS: Ketorolac Tromethamine 30 MG/ML VIAL IVP SCH ×3 (03:21→20:47)
[2019-01-28] MEDS: diphenhydrAMINE 50 MG/ML VIAL IVP SCH ×3 (03:21→20:41)
[2019-01-28] MEDS ORDERED: Ondansetron PF 4 MG/2 ML Vial ONE (03:42)
[2019-01-28] MEDS ORDERED: Metoclopramide HCl 10 MG/2 ML VIAL ONE (03:42)
[2019-01-28 03:59] LABS: #Basophils 0.1 thou/uL (0.0-0.2); #Eosinphils 0.1 thou/uL (0.0-0.7); #Monocytes 0.9 thou/uL (0.11-0.59); #Neutrophils 9.8 thou/uL (1.40-6.50); %Basophils 0.5 % (0.0-1.0); %Eosinophils 0.7 % (0.0-10.0); %Lymphocytes 15.8 % (21.0-51.0); %Monocytes 6.9 % (0.0-10.0); %Neutrophils 76.1 % (42.0-75.0); Hemoglobin 12.2 g/dL (12.0-16.0); Mean Corpuscular HGB CONC 35.5 g/dL (32.0-36.0); Mean Corpuscular Hemoglobin 31.5 pg (27.0-31.0); Mean Corpuscular Volume 88.7 fL (78.0-98.0); Mean Platelet Volume 7.2 fL (7.4-10.4); Platelet Count 268 thou/uL (130-400); Platelet Morphology Comment Appears Adequate; RBC Distribution Width 11.9 % (11.5-14.5); Red Blood Cell (RBC) Count 3.86 mill/uL (4.20-5.40); White Blood Cell (WBC) Count 12.9 thou/uL (4.8-10.8)
[2019-01-28] MEDS: Metoclopramide HCl 10 MG/2 ML VIAL IVP PRN (03:59)
[2019-01-28] MEDS: Ondansetron PF 4 MG/2 ML Vial IVP PRN (03:59)
[2019-01-28 04:01] LABS: Anion Gap 14 mmol/L (10-20); BUN (Urea Nitrogen) 14 mg/dL (9.8-20.1); Calc. Creatinine Clearance 0 mL/min (70-130); Calcium 8.8 mg/dL (7.8-10.44); Carbon Dioxide 23 mmol/L (23-31); Chloride 97 mmol/L (98-107); Estimated GFR-MDRD Greater than 90; Glucose 112 mg/dL (80-115); Potassium 3.7 mmol/L (3.5-5.1); Sodium 130 mmol/L (136-145)
[2019-01-28] MEDS ORDERED: Ketorolac Tromethamine 30 MG/ML VIAL IVP SCH ×2 (06:00→09:30)
[2019-01-28] MEDS ORDERED: diphenhydrAMINE 50 MG/ML VIAL IVP SCH ×2 (06:00→09:30)
[2019-01-28] MEDS: Levothyroxine Sodium 88 MCG TAB PO SCH (08:13)
[2019-01-28] MEDS ORDERED: Cyclobenzaprine 10 MG TAB PO SCH (11:15)
[2019-01-28] MEDS: Lisinopril/Hydrochlorothiazide 20/25 mg Tablet PO SCH (11:32)
[2019-01-28] MEDS ORDERED: Cyclobenzaprine 10 MG TAB ONE (14:41)
[2019-01-28 17:23] VITALS: BMI 26.4
[2019-01-29] MEDS: Ketorolac Tromethamine 30 MG/ML VIAL IVP SCH ×4 (03:26→20:15)
[2019-01-29] MEDS: diphenhydrAMINE 50 MG/ML VIAL IVP SCH ×3 (03:27→20:52)
[2019-01-29] MEDS: Nicotine 14 MG PATCH TD SCH (03:29)
[2019-01-29 05:27] LABS: #Basophils 0.1 thou/uL (0.0-0.2); #Eosinphils 0.4 thou/uL (0.0-0.7); #Lymphocytes 2.9 thou/uL (1.20-3.40); #Neutrophils 5.1 thou/uL (1.40-6.50); %Basophils 0.9 % (0.0-1.0); %Eosinophils 4.3 % (0.0-10.0); %Lymphocytes 30.2 % (21.0-51.0); %Monocytes 10.5 % (0.0-10.0); %Neutrophils 54.1 % (42.0-75.0); Mean Corpuscular HGB CONC 33.6 g/dL (32.0-36.0); Mean Corpuscular Hemoglobin 30.8 pg (27.0-31.0); Mean Corpuscular Volume 91.7 fL (78.0-98.0); Mean Platelet Volume 6.5 fL (7.4-10.4); Platelet Count 349 thou/uL (130-400); RBC Distribution Width 12.4 % (11.5-14.5); White Blood Cell (WBC) Count 9.5 thou/uL (4.8-10.8)
[2019-01-29] MEDS: Levothyroxine Sodium 88 MCG TAB PO SCH (05:39)
[2019-01-29 05:54] LABS: Anion Gap 13 mmol/L (10-20); BUN (Urea Nitrogen) 11 mg/dL (9.8-20.1); Calc. Creatinine Clearance 88 mL/min (70-130); Calcium 8.6 mg/dL (7.8-10.44); Carbon Dioxide 25 mmol/L (23-31); Chloride 99 mmol/L (98-107); Estimated GFR-MDRD 82; Glucose 90 mg/dL (80-115); Potassium 3.6 mmol/L (3.5-5.1); Sodium 133 mmol/L (136-145)
--- NOTE | 2019-01-29 06:08 | PDOC.FM ---
- Subjective Subjective: Patient states that she continues to have a headache but that it has improved. Pain located on top of her head, front and back of her neck. Nausea improved and patient eating and drinking as normal. Still has some photosensitivity, with worsening of her headache pain with TV flashing lights. - Objective MAR Reviewed: Yes Vital Signs & Weight: Vital Signs (12 hours) Temp Pulse Resp BP BP Pulse Ox 01/29/19 04:00 98.2 F 61 18 143/86 H 93 L 01/28/19 23:58 98.2 F 63 16 131/74 92 L 01/28/19 19:57 98.3 F 74 18 139/77 93 L Weight Weight 71.668 kg I&O: 01/27/19 01/28/19 01/29/19 06:59 06:59 06:59 Intake Total 2654 Balance 2654 Result Diagrams: 01/29/19 04:50 01/29/19 04:50 Phys Exam - Physical Examination Constitutional: NAD HEENT: moist MMs, sclera anicteric posterior scalene and upper trapezius muscles hypertonic and TTP Neck: no JVD, supple, full ROM Respiratory: no wheezing, no rhonchi, clear to auscultation bilateral Cardiovascular: RRR, no significant murmur Gastrointestinal: soft, non-tender, no distention, positive bowel sounds Musculoskeletal: no edema, pulses present Neurological: normal sensation, moves all 4 limbs Psychiatric: normal affect, A&O x 3 Skin: no rash, normal turgor Dx/Plan (1) Intractable headache Code(s): R51 - HEADACHE Status: Acute Qualifiers: Headache type: unspecified Headache chronicity pattern: acute headache Qualified Code(s): R51 - Headache (2) Intractable vomiting with nausea Code(s): R11.2 - NAUSEA WITH VOMITING, UNSPECIFIED Status: Acute (3) Meningitis Code(s): G03.9 - MENINGITIS, UNSPECIFIED Status: Acute (4) HLD (hyperlipidemia) Code(s): E78.5 - HYPERLIPIDEMIA, UNSPECIFIED Status: Chronic Qualifiers: Hyperlipidemia type: mixed hyperlipidemia Qualified Code(s): E78.2 - Mixed hyperlipidemia (5) HTN (hypertension) Code(s): I10 - ESSENTIAL (PRIMARY) HYPERTENSION Status: Chronic Qualifiers: Hypertension type: essential hypertension Qualified Code(s): I10 - Essential (primary) hypertension - Plan Plan: 68 y/o f admitted for viral meningitis with headache and n/v. 1. Viral Meningitis - Recent admission CSF studies consistent with viral meningitis. Neg HSV. no growth on culture. No LP indicated at this time. Likely d/t Enterovirus. - Admit for symptomatic management: Toradol, reglan, benadryl, tylenol, and zofran. - IVF LR @ 125 mL/hr initially, patient now tolerating PO intake so discontinued - WBC 13.4 > 9.5 - Blood cx negative at 24 hours 2. Intractable Nausea and Vomiting - Continue symptomatic management with anti-emetics Reglan, Zofran 3. Intractable Headache - Toradol, reglan, tylenol - most likely 2/2 viral meningitis vs migraine - will start scheduled Flexeril given tender & hypertonic posterior scalene and upper trapezius mm. 4. Hx of HTN - Continue home meds lisinopril/HCTZ 5. Hx of HLD 6. Hypothyroidism - Continue levothyroxine 88 mcg daily Code status: full code Diet: clears, advance as tolerated DVT ppx: SCD's Dispo: Stable, Admit to medical obs for further symptomatic management of viral meningitis. Anticipate discharge in <48 hours.
[2019-01-29] MEDS ORDERED: Acetaminophen 325 MG TAB PO PRN (08:53)
[2019-01-29] MEDS ORDERED: Cyclobenzaprine 10 MG TAB PO SCH (09:00)
[2019-01-29] MEDS: Lisinopril/Hydrochlorothiazide 20/25 mg Tablet PO SCH (09:36)
[2019-01-29] MEDS: Cyclobenzaprine 10 MG TAB PO SCH ×3 (09:37→20:15)
[2019-01-29] MEDS ORDERED: Magnesium 2 GM/50 ML 2 GM in Premix Bag 1 BAG IVPB SCH (11:15)
[2019-01-29] MEDS ORDERED: methylPREDNISolone Sod Succ/PF 125 MG/2 ML VIAL IVP SCH (11:15)
--- NOTE | 2019-01-29 12:34 | PRG ---
DATE OF SERVICE: 01/29/2019 Ms. Terry is a 68-year-old lady, who was discharged from the hospital about a week ago with viral meningitis. She returned yesterday with intractable headache, nausea, and vomiting. She has received multiple medications overnight and this morning feels somewhat better. We can likely discharge her later this afternoon. Job ID: [id number]
[2019-01-29] MEDS: Acetaminophen 325 MG TAB PO SCH ×4 (12:48→23:08)
[2019-01-29] MEDS ORDERED: FLU VACC TS2019-20(65YR UP)/PF 180 MCG/0.5 ML SYRINGE IM ONE (16:30)
[2019-01-29] MEDS ORDERED: VALPROATE SODIUM IVPB SCH (17:15)
[2019-01-29] MEDS ORDERED: SODIUM CHLORIDE 0.9% IVPB SCH (17:15)
[2019-01-29] MEDS ORDERED: Ketamine 50 MG/ML (10ML VIAL) SLOW IVP SCH (19:30)
[2019-01-29] MEDS: Ondansetron PF 4 MG/2 ML Vial IVP PRN (20:30)
[2019-01-29] MEDS: Metoclopramide HCl 10 MG/2 ML VIAL IVP PRN (20:30)
[2019-01-29] MEDS ORDERED: Haloperidol Lactate 5 MG/ML VIAL SLOW IVP SCH (22:30)
[2019-01-30] MEDS: Metoclopramide HCl 10 MG/2 ML VIAL IVP PRN ×2 (03:12→08:59)
[2019-01-30] MEDS: Ondansetron PF 4 MG/2 ML Vial IVP PRN ×2 (03:12→09:00)
[2019-01-30] MEDS: Ketorolac Tromethamine 30 MG/ML VIAL IVP SCH ×2 (03:12→09:00)
[2019-01-30] MEDS: Nicotine 14 MG PATCH TD SCH (03:12)
[2019-01-30] MEDS: diphenhydrAMINE 50 MG/ML VIAL IVP SCH ×2 (04:06→09:04)
[2019-01-30] MEDS: Acetaminophen 325 MG TAB PO SCH ×2 (05:30→11:36)
[2019-01-30] MEDS: Levothyroxine Sodium 88 MCG TAB PO SCH (05:30)
[2019-01-30] MEDS ORDERED: NEXIUM PO SCH ×4 (06:00→09:00)
--- NOTE | 2019-01-30 06:00 | PDOC.FM ---
- Subjective Subjective: Patient states her headache is now 3 or 4 out of 10. Denies nausea or vomiting. States that she slept well overnight and otherwise has no complaints. - Objective MAR Reviewed: Yes Vital Signs & Weight: Vital Signs (12 hours) Temp Pulse Resp BP Pulse Ox 01/29/19 20:00 97.7 F 81 18 147/89 H 95 Weight Admit Weight 72.03 kg Weight 70.216 kg I&O: 01/28/19 01/29/19 01/30/19 06:59 06:59 06:59 Intake Total 2654 1300 Balance 2654 1300 Result Diagrams: 01/30/19 05:58 01/30/19 05:58 Phys Exam - Physical Examination Constitutional: NAD HEENT: moist MMs, sclera anicteric Neck: no JVD, supple, full ROM Respiratory: no wheezing, no rhonchi, clear to auscultation bilateral Cardiovascular: RRR, no significant murmur Gastrointestinal: soft, non-tender, no distention, positive bowel sounds Musculoskeletal: no edema, pulses present Neurological: normal sensation, moves all 4 limbs Psychiatric: normal affect, A&O x 3 Skin: no rash, normal turgor Dx/Plan (1) Intractable headache Code(s): R51 - HEADACHE Status: Acute Qualifiers: Headache type: unspecified Headache chronicity pattern: acute headache Qualified Code(s): R51 - Headache (2) Intractable vomiting with nausea Code(s): R11.2 - NAUSEA WITH VOMITING, UNSPECIFIED Status: Acute (3) Meningitis Code(s): G03.9 - MENINGITIS, UNSPECIFIED Status: Acute (4) HLD (hyperlipidemia) Code(s): E78.5 - HYPERLIPIDEMIA, UNSPECIFIED Status: Chronic Qualifiers: Hyperlipidemia type: mixed hyperlipidemia Qualified Code(s): E78.2 - Mixed hyperlipidemia (5) HTN (hypertension) Code(s): I10 - ESSENTIAL (PRIMARY) HYPERTENSION Status: Chronic Qualifiers: Hypertension type: essential hypertension Qualified Code(s): I10 - Essential (primary) hypertension - Plan Plan: 68 y/o female admitted for viral meningitis with headache and n/v: 1. Viral Meningitis - Recent admission CSF studies consistent with viral meningitis. Neg HSV. no growth on culture. No LP indicated at this time. Likely d/t Enterovirus. - Admit for symptomatic management: Toradol, reglan, benadryl, tylenol, and zofran. - IVF LR @ 125 mL/hr initially, patient now tolerating PO intake so discontinued - WBC 13.4 > 9.5 > 12.4 - Blood cx negative at 24 hours - Flu negative 2. Intractable Nausea and Vomiting--resolved - Continue symptomatic management with anti-emetics Reglan, Zofran 3. Intractable Headache - Toradol, reglan, tylenol - Benadryl initially given but being held d/t patient refusal 2/2 side effects - most likely 2/2 viral meningitis vs migraine - scheduled Flexeril given tender & hypertonic posterior scalene and upper trapezius mm. - following [facility] Headache protocol--patient has additionally had Solumedrol 125mg x 1, Mag 2g x1, Valproic acid x 1, Haldol 5mg 4. Hx of HTN - Continue home meds lisinopril/HCTZ 5. Hx of HLD 6. Hypothyroidism - Continue levothyroxine 88 mcg daily Code status: full code Diet: clears, advance as tolerated DVT ppx: SCD's Dispo: Stable, Admit to medical obs for further symptomatic management of headache. Anticipate discharge in <48 hours.
[2019-01-30 06:19] LABS: #Basophils 0.1 thou/uL (0.0-0.2); #Lymphocytes 1.7 thou/uL (1.20-3.40); #Monocytes 0.7 thou/uL (0.11-0.59); #Neutrophils 9.9 thou/uL (1.40-6.50); %Basophils 0.5 % (0.0-1.0); %Eosinophils 0.2 % (0.0-10.0); %Lymphocytes 13.5 % (21.0-51.0); %Monocytes 5.9 % (0.0-10.0); %Neutrophils 79.8 % (42.0-75.0); Hemoglobin 13.4 g/dL (12.0-16.0); Mean Corpuscular HGB CONC 34.7 g/dL (32.0-36.0); Mean Corpuscular Hemoglobin 31.2 pg (27.0-31.0); Mean Corpuscular Volume 89.8 fL (78.0-98.0); Mean Platelet Volume 6.4 fL (7.4-10.4); Platelet Count 369 thou/uL (130-400); RBC Distribution Width 12.1 % (11.5-14.5); White Blood Cell (WBC) Count 12.4 thou/uL (4.8-10.8)
[2019-01-30 06:41] LABS: Anion Gap 17 mmol/L (10-20); BUN (Urea Nitrogen) 13 mg/dL (9.8-20.1); Calc. Creatinine Clearance 93 mL/min (70-130); Calcium 8.3 mg/dL (7.8-10.44); Carbon Dioxide 21 mmol/L (23-31); Chloride 96 mmol/L (98-107); Estimated GFR-MDRD 90; Glucose 144 mg/dL (80-115); Potassium 4.3 mmol/L (3.5-5.1); Sodium 130 mmol/L (136-145)
[2019-01-30 08:20] VITALS: BP 135/85; TEMP 97.9
[2019-01-30] MEDS: Lisinopril/Hydrochlorothiazide 20/25 mg Tablet PO SCH (08:58)
[2019-01-30] MEDS: Cyclobenzaprine 10 MG TAB PO SCH (08:59)
[2019-01-30] MEDS ORDERED: Ibuprofen 800 MG TAB PO SCH ×2 (09:00→12:00)
--- NOTE | 2019-01-30 11:57 | PRG ---
DATE OF SERVICE: 01/30/2019 Ms. Terry is looking and feeling much better this morning and is asking to go home. We will wait and see how she feels this afternoon before making a final disposition. It seems rather late to be a spinal headache, but we will ask Anesthesia if this is still possible and whether or not, she may need a patch. Job ID: [id number]
--- NOTE | 2019-01-31 05:42 | DIS ---
DATE OF ADMISSION: 01/28/2019 DATE OF DISCHARGE: 01/30/2019 RESIDENT: Milagro Ware DO. ADMITTING ATTENDING: Daniel Dupree MD. DISCHARGE ATTENDING: Trevon Worthy MD. CONSULT: 1. Physical Therapy. 2. Occupational Therapy. PROCEDURES: Brain CT on January 27, 2019: No acute intracranial abnormality. There is a prominent mucous retention cyst within the sphenoid sinus. PRIMARY DIAGNOSIS: Intractable headache, viral meningitis versus intractable migraine. SECONDARY DIAGNOSES: 1. Recent admission for viral meningitis. 2. Intractable nausea and vomiting. 3. Intractable headache. 4. Hypertension. 5. Hyperlipidemia. 6. Hypothyroidism. DISCHARGE MEDICATIONS: 1. Esomeprazole magnesium (Nexium) 40 mg p.o. daily. 2. Levothyroxine 88 mcg p.o. daily. 3. Lisinopril/hydrochlorothiazide 20 mg/25 mg one tablet p.o. daily. 4. Acetaminophen with Codeine No. 3, 300 mg/30 mg tab, one tab p.o. q.4 hours p.r.n. 5. Ondansetron 4 mg p.o. q.6 hours p.r.n. for nausea. 6. Acetaminophen 650 mg p.o. q.6 hours. 7. Cyclobenzaprine (Flexeril) 5 mg p.o. t.i.d. 8. Ibuprofen 800 mg p.o. q.6 hours. DISCONTINUED MEDICATIONS: 1. Lactated Ringer's IV at 125 mL/h. 2. Diphenhydramine (Benadryl) 50 mg IVP q.6 hours. 3. Metoclopramide HCl (Reglan) 10 mg IVP q.6 hours p.r.n. 4. Nicotine patch 14 mg transdermal q.24 hours. 5. Ketorolac tromethamine (Toradol) 15 mg IVP q.6 hours. 6. Methylprednisolone sodium succinate (Solu-Medrol) 125 mg IVP x1 dose. 7. Magnesium 2 g IVPB x1 dose. 8. Valproate sodium 500 mg IVPB x1 dose. 9. Haloperidol (Haldol) 5 mg slow IVP x1 dose. HISTORY OF PRESENT ILLNESS/HOSPITAL COURSE: Patient is a 68-year-old female who was recently discharged from the hospital for viral meningitis approximately four days prior. Over the following day, she started to have a headache again with worsening nausea and vomiting. She denied any fever. The patient additionally complained of back and neck pain and stiffness since her admission the previous week. It is slightly better now than when she was discharged. The patient's headache is described as left-sided, pressure, and throbbing in character, and associated with bilateral eye pain. The patient denies any tearing of her eyes when she is having the headache. She does report sensitivity to light and noise with the headache. Patient also states the headache is worse when she is lying flat. The patient also states that she has been "very shaky" and having chills. Patient has never really had headaches since before her previous admission for viral meningitis. The patient states she has been unable to tolerate her p.o. medications from her last discharge. In the emergency department, she was given a course of 1 L normal saline, Phenergan IV, Tylenol, Benadryl, and her CT head was negative. She had a white blood cell count of 13.4, sodium 131, and lactic acid 1.9. CSF cultures resulted from the previous admission showed no growth. Her respiratory viral panel was also negative on previous admission. HSV cultures were negative. The previous admissions viral meningitis was thought to be due to most likely etiology of enterovirus. At this point, no lumbar puncture was indicated. The patient was admitted to observation on the medical unit for further symptomatic management and monitoring. Symptomatic management of patient's headache, nausea, and vomiting was continued with pain medication and antiemetics. The patient was started on a scheduled course of Toradol, Reglan, and Tylenol. Initially, Benadryl was also included, although the patient declined this after her first day of admission. On the morning of January 29, 2019, the patient stated that her headache had improved. The pain was located on the top of her head, in the front and back of her neck. Her nausea had also improved. She was able to eat and drink as normal and her fluids were discontinued at this time. She also complained of some continued photosensitivity with worsening of her headache pain with TV flashing lights. Later in the morning, the patient expressed her desire to return home due to feeling better. However , a few hours later in the early afternoon residents were notified by nursing staff that patient was rating her headache a 10/10. She stated that the current pain medications "did nothing" to help her pain. Patient was administered additional dosing per [facility] headache protocol of one time doses of valproic acid, Solu-Medrol, and magnesium sulfate. The patient was also started on scheduled Tylenol and Motrin every 6 hours. The patient's headache pain continued to worsen and she said none of the previously stated medications helped her pain. It was attempted to give ketamine, however, the patient was unable to receive this on her current medical unit. It was then opted to give Haldol 5 mg. The patient stated that this began to relieve her headache pain and allow her to sleep through the night. On the morning of January 30, 2019, the patient stated that her headache was about a 2 or 3/10. She stated she felt much better and had a good night's sleep. Throughout the morning and early afternoon, the patient did not complain of any pain to nursing staff. Early afternoon of January 30, 2019, the patient was considered stable for discharge back home with instructions to continue her scheduled Tylenol and Motrin for pain control. She could also resume her previous prescription for Zofran if her nausea were to return. DISPOSITION: Stable. DISCHARGE INSTRUCTIONS: 1. Location: Home. 2. Diet: Regular. 3. Activity: As tolerated. 4. Follow up with PCP, Dr. Lynn Ramires, in 3 to 5 days for hospital followup. Job ID: [id number] [id number]
== END 2019-01-30 13:56 | disposition home or self-care (01) ==
LOC: ERS 20:33 → ERHOLD 01-28 00:15 → T4-A 01-28 00:39
PROVIDERS: ADMIT Emergency Medicine; ATTEND Emergency Medicine
DX: R51 Headache (principal); R11.2 Nausea with vomiting, unspecified; I10 Essential (primary) hypertension; A87.9 Viral meningitis, unspecified; E78.2 Mixed hyperlipidemia; E89.0 Postprocedural hypothyroidism; Z79.899 Other long term (current) drug therapy; Z91.018 Allergy to other foods
CPT/HCPCS: 70450; 80048 ×3; 80053; 83605; 83690; 85025 ×4; 87040; 87804 ×2; 96361; 96365; 96366; 96367; 96375 ×4; 96376 ×3; 99285; G0378 ×3; 36415; J1200; J1630; J1885; J2405; J2550; J2765; J2930; J3475; J7050

== ENCOUNTER 2021-09-21 10:43 | Outpatient (CLI) | payer MEDICARE ==
[2021-09-21 12:36] LABS: Bilirubin Neg (Negative); Blood, Urine 10 (Negative); Clarity Clear (Clear); Glucose, Urine (Dipstick) Normal (Negative); Ketone, Urine Negative (Negative); Leukocyte 100 (Negative); Nitrite Negative (Negative); Protein, Urine (Dipstick) 15 mg/dl (Neg-Trace); Specific Gravity, Urine 1.005 (1.002-1.036); Urobilinogen Normal mg/dL (Less than 2)
[2021-09-21 12:44] LABS: #Basophils 0.1 10x3/uL (0.0-0.2); #Eosinphils 0.2 10x3/uL (0.0-0.5); #Monocytes 0.6 10x3/uL (0.0-1.1); #Neutrophils 4.3 10x3/uL (1.5-8.4); %Basophils 0.8 % (0.0-2.0); %Eosinophils 3.2 % (0.0-6.0); %Lymphocytes 28.6 % (18.0-47.0); %Monocytes 8.2 % (0.0-10.0); %Neutrophils 58.8 % (40.0-75.0); Hemoglobin 13.8 g/dL (12.0-15.5); Mean Corpuscular HGB CONC 34.5 g/dL (32.0-36.0); Mean Corpuscular Hemoglobin 30.2 pg (27.0-33.0); Mean Corpuscular Volume 87.5 fl (81.6-98.3); Mean Platelet Volume 10.4 fl (7.4-10.4); Platelet Count 276 10x3/uL (150-450); RBC Distribution Width 13.4 % (11.5-14.5); Red Blood Cell (RBC) Count 4.57 10x6/uL (3.90-5.03); White Blood Cell (WBC) Count 7.2 10x3/uL (3.5-10.5)
[2021-09-21 13:26] LABS: Anion Gap 17 mmol/L (10-20); BUN (Urea Nitrogen) 12 mg/dL (9.8-20.1); Calc. Creatinine Clearance 0 mL/min (70-130); Calcium 8.8 mg/dL (7.8-10.44); Carbon Dioxide 24 mmol/L (23-31); Chloride 102 mmol/L (98-107); Glucose 128 mg/dL (80-115); Potassium 3.2 mmol/L (3.5-5.1); Sodium 140 mmol/L (136-145)
== END 2021-09-21 10:44 | disposition home or self-care (01) ==
LOC: LABBT 10:43
PROVIDERS: ATTEND Orthopaedic Surgery Hand Surgery
DX: Z01.818 Encounter for other preprocedural examination (principal); G56.02 Carpal tunnel syndrome, left upper limb; M18.12 Unilateral primary osteoarthritis of first carpometacarpal joint, left hand; M65.331 Trigger finger, right middle finger; Z20.822 Contact with and (suspected) exposure to COVID-19
CPT/HCPCS: 80048; 81003; 85025; 93005; U0003; U0005; 93010

== ENCOUNTER 2021-09-26 10:33 | Day surgery (SDC) | payer MEDICARE ==
[2021-09-22 11:10] VITALS: BMI 27.6
[2021-09-26] MEDS ORDERED: Betamet Acet/Betamet Na Ph 30 MG/5 ML VIAL ONE (12:12)
[2021-09-26] MEDS ORDERED: Neomycin-Polymyxin 1 ML AMP ONE (12:12)
[2021-09-26] MEDS ORDERED: Bupivacaine PF 0.5% 30 ML VIAL ONE (12:12)
[2021-09-26] MEDS ORDERED: Bacitracin Zinc Ointment 30 gm TUBE ONE (12:12)
[2021-09-26] MEDS ORDERED: CEFAZOLIN 2 GM VIAL ONE (14:00)
[2021-09-26] MEDS ORDERED: Sodium Chloride 0.9% 100 ML ONE (14:00)
[2021-09-26] MEDS ORDERED: fentaNYL Citrate/PF 100 MCG/2 ML SYRINGE ONE ×2 (14:29→18:18)
[2021-09-26] MEDS ORDERED: Lidocaine 1% PF 5 ML VIAL ONE (14:48)
[2021-09-26] MEDS ORDERED: Ondansetron PF 4 MG/2 ML Vial ONE ×3 (14:48→18:02)
[2021-09-26] MEDS ORDERED: Dexamethasone 20 MG/5 ML VIAL ONE (14:48)
[2021-09-26] MEDS ORDERED: ePHEDrine 50 MG/ML VIAL ONE (14:48)
[2021-09-26] MEDS ORDERED: Glycopyrrolate 0.2 MG/ML 5 ML SYRINGE ONE (14:48)
[2021-09-26] MEDS ORDERED: PROPOFOL 200 MG/20 ML VIAL ONE (14:48)
[2021-09-26] MEDS ORDERED: PHENYLEPHRINE-NS 100 MCG/ML 10 ML SYRINGE ONE (14:48)
[2021-09-26] MEDS ORDERED: HYDROmorphone 2 MG/ML VIAL ONE (14:54)
[2021-09-26] MEDS ORDERED: Fentanyl 100 MCG/2 ML VIAL ONE ×2 (19:33→20:07)
[2021-09-26] MEDS ORDERED: Ketorolac Tromethamine 30 MG/ML VIAL ONE (19:54)
== END 2021-09-26 22:00 | disposition home or self-care (01) ==
LOC: SDC 10:33
PROVIDERS: ATTEND Orthopaedic Surgery Hand Surgery
PROC: 01N50ZZ Release Median Nerve, Open Approach (ICD-10-PCS; principal; 2021-09-26)
PROC: 0LX60ZZ Transfer Left Lower Arm and Wrist Tendon, Open Approach (ICD-10-PCS; 2021-09-26)
PROC: 0RUT07Z Supplement Left Carpometacarpal Joint with Autologous Tissue Substitute, Open Approach (ICD-10-PCS; 2021-09-26)
DX: M18.12 Unilateral primary osteoarthritis of first carpometacarpal joint, left hand (principal); G56.02 Carpal tunnel syndrome, left upper limb; M25.242 Flail joint, left hand; E89.0 Postprocedural hypothyroidism; Z79.890 Hormone replacement therapy; Z79.899 Other long term (current) drug therapy; Z91.048 Other nonmedicinal substance allergy status
CPT/HCPCS: 76000; C1713; J0690; J0702; J1100; J1170; J1885; J2405; J2704; J3010; J3490; S0020

== ENCOUNTER 2022-07-27 19:45 | Inpatient (IN) | payer MEDICARE ==
[2022-07-27] MEDS ORDERED: Dextrose 50% Abboject 50 ML SYRINGE SLOW IVP PRN (21:54)
[2022-07-27] MEDS ORDERED: HumaLOG 300 UNITS/3 ML VIAL SC PRN (21:54)
[2022-07-27] MEDS ORDERED: Dextrose 5% in Water 1,000 ML IV PRN (21:54)
[2022-07-27] MEDS ORDERED: cefTRIAXone\\ROCEPHIN 2 GM in Sodium Chloride 0.9% 100 ML IVPB SCH (22:00)
[2022-07-27] MEDS: metroNIDAZOLE 500 MG in Premix Bag 1 BAG IVPB SCH (22:26)
[2022-07-27] MEDS ORDERED: Morphine 2 MG/ML VIAL SLOW IVP PRN (23:59)
[2022-07-28] MEDS: Acetaminophen 325 MG TAB PO PRN ×4 (00:24→22:42)
[2022-07-28] MEDS: Ondansetron PF 4 MG/2 ML Vial IVP PRN ×4 (00:26→22:44)
[2022-07-28 04:51] LABS: #Lymphocytes 0.8 thou/uL (1.20-3.40); #Monocytes 0.5 thou/uL (0.11-0.59); #Neutrophils 8.2 thou/uL (1.40-6.50); %Basophils 0.2 % (0.0-1.0); %Eosinophils 0.1 % (0.0-10.0); %Lymphocytes 8.2 % (21.0-51.0); %Monocytes 4.8 % (0.0-10.0); %Neutrophils 86.8 % (42.0-75.0); Mean Corpuscular HGB CONC 35.2 g/dL (32.0-36.0); Mean Corpuscular Hemoglobin 32.4 pg (27.0-31.0); Mean Platelet Volume 8.3 fL (7.4-10.4); Platelet Count 168 10x3/uL (130-400); RBC Distribution Width 11.7 % (11.5-14.5); Red Blood Cell (RBC) Count 3.39 mill/uL (4.20-5.40); White Blood Cell (WBC) Count 9.5 10x3/uL (4.8-10.8)
[2022-07-28 05:16] LABS: Phosphorus 1.6 mg/dL (2.3-4.7)
[2022-07-28 05:21] LABS: ALT (SGPT) 10 U/L (8-55); AST (SGOT) 21 U/L (5-34); Albumin 3.2 g/dL (3.4-4.8); Alkaline Phosphatase 69 U/L (40-110); Anion Gap 12 mmol/L (10-20); BUN (Urea Nitrogen) 10 mg/dL (9.8-20.1); Bilirubin, Total 0.2 mg/dL (0.2-1.2); Calc. Creatinine Clearance 93 mL/min (70-130); Carbon Dioxide 19 mmol/L (23-31); Chloride 105 mmol/L (98-107); Estimated GFR 95; Globulin 2.3 g/dL (2.4-3.5); Glucose 113 mg/dL (80-115); Magnesium 1.5 mg/dL (1.6-2.6); Potassium 3.1 mmol/L (3.5-5.1); Protein, Total 5.5 g/dL (5.8-8.1); Sodium 133 mmol/L (136-145)
[2022-07-28] MEDS: metroNIDAZOLE 500 MG in Premix Bag 1 BAG IVPB SCH ×2 (06:08→14:07)
[2022-07-28] MEDS: Levothyroxine Sodium 88 MCG TAB PO SCH (06:08)
[2022-07-28] MEDS: Ezetimibe 10 MG TAB PO SCH (08:01)
[2022-07-28] MEDS: Nateglinide 120 MG TAB PO SCH (08:01)
[2022-07-28] MEDS ORDERED: Magnesium Sulfate In Water 4 GM in Premix Bag 1 BAG IVPB SCH (09:00)
[2022-07-28] MEDS ORDERED: Potassium Phosphate 30 MMOL in Sodium Chloride 0.9% 250 ML 250 ML IVPB SCH (09:00)
[2022-07-28] MEDS ORDERED: Lisinopril 20 MG TAB PO SCH (09:00)
[2022-07-28] MEDS ORDERED: cefTRIAXone\\ROCEPHIN 2 GM in Sodium Chloride 0.9% 100 ML IVPB SCH (17:00)
[2022-07-28] MEDS: Azithromycin 500 MG in Sodium Chloride 0.9% 250 ML 250 ML IVPB SCH (17:22)
[2022-07-28] MEDS ORDERED: Piperacillin/Tazobactam 3.375 GM in Sodium Chloride 0.9% 100 ML IVPB SCH (18:00)
[2022-07-28] MEDS: Piperacillin/Tazobactam 3.375 GM in Sodium Chloride 0.9% 100 ML IVPB SCH ×2 (18:33→21:49)
[2022-07-28] MEDS: Amlodipine 10 MG TAB PO SCH (21:49)
[2022-07-29 05:13] LABS: #Basophils 0.1 thou/uL (0.0-0.2); #Lymphocytes 1.4 thou/uL (1.20-3.40); #Monocytes 0.5 thou/uL (0.11-0.59); #Neutrophils 8.5 thou/uL (1.40-6.50); %Basophils 0.7 % (0.0-1.0); %Eosinophils 0.2 % (0.0-10.0); %Lymphocytes 13.6 % (21.0-51.0); %Monocytes 4.7 % (0.0-10.0); %Neutrophils 80.9 % (42.0-75.0); Mean Corpuscular HGB CONC 35.3 g/dL (32.0-36.0); Mean Corpuscular Hemoglobin 33.1 pg (27.0-31.0); Mean Corpuscular Volume 93.8 fl (78.0-98.0); Mean Platelet Volume 8.3 fL (7.4-10.4); Platelet Count 175 10x3/uL (130-400); RBC Distribution Width 11.9 % (11.5-14.5); Red Blood Cell (RBC) Count 3.63 mill/uL (4.20-5.40); White Blood Cell (WBC) Count 10.5 10x3/uL (4.8-10.8)
[2022-07-29] MEDS: Acetaminophen 325 MG TAB PO PRN ×2 (05:14→12:56)
[2022-07-29] MEDS: Piperacillin/Tazobactam 3.375 GM in Sodium Chloride 0.9% 100 ML IVPB SCH ×3 (05:14→20:53)
[2022-07-29] MEDS: Levothyroxine Sodium 88 MCG TAB PO SCH (05:14)
[2022-07-29] MEDS: Ondansetron PF 4 MG/2 ML Vial IVP PRN (05:21)
[2022-07-29] MEDS: Lisinopril/Hydrochlorothiazide 20/25 mg Tablet PO SCH (09:00)
[2022-07-29] MEDS: Nateglinide 120 MG TAB PO SCH (09:00)
[2022-07-29] MEDS: Ezetimibe 10 MG TAB PO SCH (09:00)
[2022-07-29 09:12] LABS: Anion Gap 15 mmol/L (10-20); BUN (Urea Nitrogen) 5 mg/dL (9.8-20.1); Calc. Creatinine Clearance 86 mL/min (70-130); Calcium 8.5 mg/dL (7.8-10.44); Carbon Dioxide 18 mmol/L (23-31); Chloride 102 mmol/L (98-107); Estimated GFR 93; Glucose 120 mg/dL (80-115); Potassium 3.3 mmol/L (3.5-5.1); Sodium 132 mmol/L (136-145)
[2022-07-29] MEDS ORDERED: Potassium Chloride 20 MEQ TAB PO SCH (09:30)
[2022-07-29] MEDS: Atenolol 25 MG TAB PO SCH (12:56)
[2022-07-29] MEDS ORDERED: Lactated Ringer's 1,000 ML IV SCH (13:45)
[2022-07-29] MEDS: Azithromycin 500 MG in Sodium Chloride 0.9% 250 ML 250 ML IVPB SCH (17:45)
[2022-07-29] MEDS: Amlodipine 10 MG TAB PO SCH (20:52)
[2022-07-29] MEDS: Loperamide HCl 2 MG CAP PO PRN ×2 (20:52→23:23)
[2022-07-30 00:05] LABS: Campy jejuni + coli by PCR Negative (Negative); STEC Shiga Toxin 1+2 Negative (Negative); Salmonella spp. by PCR Negative (Negative); Shigella spp + EIEC by PCR Negative (Negative)
[2022-07-30 04:57] LABS: Anion Gap 14 mmol/L (10-20); BUN (Urea Nitrogen) 6 mg/dL (9.8-20.1); Calc. Creatinine Clearance 87 mL/min (70-130); Calcium 8.3 mg/dL (7.8-10.44); Carbon Dioxide 21 mmol/L (23-31); Chloride 99 mmol/L (98-107); Estimated GFR 94; Glucose 97 mg/dL (80-115); Potassium 3.6 mmol/L (3.5-5.1); Sodium 130 mmol/L (136-145)
[2022-07-30] MEDS: Levothyroxine Sodium 88 MCG TAB PO SCH (05:40)
[2022-07-30] MEDS: Piperacillin/Tazobactam 3.375 GM in Sodium Chloride 0.9% 100 ML IVPB SCH ×3 (05:40→23:00)
[2022-07-30] MEDS: Acetaminophen 325 MG TAB PO PRN ×2 (05:40→23:07)
[2022-07-30] MEDS: Lisinopril/Hydrochlorothiazide 20/25 mg Tablet PO SCH (08:28)
[2022-07-30] MEDS: Saccharomyces boulardii 250 MG CAP PO SCH (08:28)
[2022-07-30] MEDS: Ezetimibe 10 MG TAB PO SCH (08:28)
[2022-07-30] MEDS: Nateglinide 120 MG TAB PO SCH (08:28)
[2022-07-30] MEDS: Atenolol 25 MG TAB PO SCH ×2 (08:28→16:40)
[2022-07-30] MEDS ORDERED: Azithromycin 500 MG in Sodium Chloride 0.9% 250 ML 250 ML IVPB SCH (17:00)
[2022-07-30] MEDS: Amlodipine 10 MG TAB PO SCH (20:56)
[2022-07-31] MEDS: Piperacillin/Tazobactam 3.375 GM in Sodium Chloride 0.9% 100 ML IVPB SCH ×2 (03:13→11:38)
[2022-07-31 05:08] LABS: #Eosinphils 0.3 thou/uL (0.0-0.7); #Lymphocytes 1.7 thou/uL (1.20-3.40); #Monocytes 0.5 thou/uL (0.11-0.59); #Neutrophils 5.2 thou/uL (1.40-6.50); %Basophils 0.5 % (0.0-1.0); %Eosinophils 3.9 % (0.0-10.0); %Monocytes 6.6 % (0.0-10.0); Hemoglobin 12.5 g/dL (12.0-16.0); Mean Corpuscular HGB CONC 36.1 g/dL (32.0-36.0); Mean Corpuscular Hemoglobin 33.7 pg (27.0-31.0); Mean Corpuscular Volume 93.2 fl (78.0-98.0); Mean Platelet Volume 7.8 fL (7.4-10.4); Platelet Count 209 10x3/uL (130-400); RBC Distribution Width 12.1 % (11.5-14.5); White Blood Cell (WBC) Count 7.8 10x3/uL (4.8-10.8)
[2022-07-31] MEDS: Levothyroxine Sodium 88 MCG TAB PO SCH (05:16)
[2022-07-31 05:33] LABS: Anion Gap 15 mmol/L (10-20); BUN (Urea Nitrogen) 8 mg/dL (9.8-20.1); Calc. Creatinine Clearance 84 mL/min (70-130); Calcium 8.9 mg/dL (7.8-10.44); Carbon Dioxide 22 mmol/L (23-31); Chloride 103 mmol/L (98-107); Estimated GFR 91; Glucose 123 mg/dL (80-115); Potassium 3.5 mmol/L (3.5-5.1); Sodium 136 mmol/L (136-145)
[2022-07-31] MEDS: Atenolol 25 MG TAB PO SCH (08:37)
[2022-07-31] MEDS: Ezetimibe 10 MG TAB PO SCH (08:38)
[2022-07-31] MEDS: Nateglinide 120 MG TAB PO SCH (08:38)
[2022-07-31] MEDS: Lisinopril/Hydrochlorothiazide 20/25 mg Tablet PO SCH (08:38)
[2022-07-31] MEDS: Saccharomyces boulardii 250 MG CAP PO SCH (08:38)
[2022-07-31 09:11] VITALS: BMI 25.6
[2022-07-31 11:52] VITALS: BP 121/65; TEMP 97.7
== END 2022-07-31 14:30 | disposition home or self-care (01) | DRG 871 ==
LOC: 2NO 20:02
PROVIDERS: ADMIT Internal Medicine; ATTEND Internal Medicine
DX: A41.9 Sepsis, unspecified organism (principal); J18.9 Pneumonia, unspecified organism; J96.91 Respiratory failure, unspecified with hypoxia; K57.32 Diverticulitis of large intestine without perforation or abscess without bleeding; E27.8 Other specified disorders of adrenal gland; E87.6 Hypokalemia; K21.9 Gastro-esophageal reflux disease without esophagitis; E89.0 Postprocedural hypothyroidism; F17.210 Nicotine dependence, cigarettes, uncomplicated; I10 Essential (primary) hypertension; E11.9 Type 2 diabetes mellitus without complications; E78.2 Mixed hyperlipidemia; E83.42 Hypomagnesemia; Z91.09 Other allergy status, other than to drugs and biological substances; Z79.899 Other long term (current) drug therapy; Z79.890 Hormone replacement therapy; Z85.850 Personal history of malignant neoplasm of thyroid; Z90.710 Acquired absence of both cervix and uterus; Z90.49 Acquired absence of other specified parts of digestive tract
CPT/HCPCS: 36415; 36416; 71045; 80048; 80053; 83605; 83630; 83735; 84100; 84145; 85025; 86140; 87324; 87449; 87505; J0456; J0696; J1650; J2272; J2405; J2543; J3475; J3490; J7050; J7120